=== PATIENT | female | born 1940 | race American Indian/Alaskan Native ===

== ENCOUNTER 2017-06-10 13:40 | Outpatient (CLI) | payer MEDICARE, BC ==
[2017-06-10] MEDS ORDERED: XYLOCAINE TOPICAL 4% TP ONE ×2 (14:38→14:48)
== END 2017-06-10 13:41 | disposition home or self-care (01) ==
LOC: WOUND 13:40
PROVIDERS: ATTEND Nurse Practitioner
DX: I87.313 Chronic venous hypertension (idiopathic) with ulcer of bilateral lower extremity (principal); E11.622 Type 2 diabetes mellitus with other skin ulcer; L97.821 Non-pressure chronic ulcer of other part of left lower leg limited to breakdown of skin; L97.811 Non-pressure chronic ulcer of other part of right lower leg limited to breakdown of skin; J44.9 Chronic obstructive pulmonary disease, unspecified; Z86.718 Personal history of other venous thrombosis and embolism
CPT/HCPCS: 87075; 87076; 87116; 87186

== ENCOUNTER 2017-06-17 13:04 | Outpatient (CLI) | payer MEDICARE, BC ==
[2017-06-17] MEDS ORDERED: XYLOCAINE TOPICAL 4% TP ONE (13:28)
[2017-06-17] MEDS ORDERED: NACL 0.9% IR PRN (13:29)
[2017-06-17] MEDS ORDERED: NACL 0.9% 500 ML IR ONE (13:34)
[2017-06-17] MEDS ORDERED: SILVER NITRATE TP ONE (14:18)
== END 2017-06-17 13:05 | disposition home or self-care (01) ==
LOC: WOUND 13:04
PROVIDERS: ATTEND Nurse Practitioner
DX: E11.622 Type 2 diabetes mellitus with other skin ulcer (principal); L97.821 Non-pressure chronic ulcer of other part of left lower leg limited to breakdown of skin; L97.811 Non-pressure chronic ulcer of other part of right lower leg limited to breakdown of skin; I87.313 Chronic venous hypertension (idiopathic) with ulcer of bilateral lower extremity; I80.293 Phlebitis and thrombophlebitis of other deep vessels of lower extremity, bilateral; J44.9 Chronic obstructive pulmonary disease, unspecified; Z86.718 Personal history of other venous thrombosis and embolism; Z85.528 Personal history of other malignant neoplasm of kidney

== ENCOUNTER 2017-06-24 13:02 | Outpatient (CLI) | payer MEDICARE, BC | END 2017-06-24 13:03 | disposition home or self-care (01) | LOC: WOUND 13:02 | PROVIDERS: ATTEND Nurse Practitioner | DX: I87.313 Chronic venous hypertension (idiopathic) with ulcer of bilateral lower extremity (principal); E11.622 Type 2 diabetes mellitus with other skin ulcer; L97.821 Non-pressure chronic ulcer of other part of left lower leg limited to breakdown of skin; L97.811 Non-pressure chronic ulcer of other part of right lower leg limited to breakdown of skin; J44.9 Chronic obstructive pulmonary disease, unspecified; Z85.528 Personal history of other malignant neoplasm of kidney; Z86.718 Personal history of other venous thrombosis and embolism | CPT/HCPCS: 29580; 29581 ==

== ENCOUNTER 2017-07-15 13:09 | Outpatient (CLI) | payer MEDICARE, BC ==
[2017-07-15] MEDS ORDERED: XYLOCAINE TOPICAL 4% TP ONE (14:25)
[2017-07-15] MEDS ORDERED: NACL 0.9% IR ONE (14:26)
== END 2017-07-15 13:10 | disposition home or self-care (01) ==
LOC: WOUND 13:09
PROVIDERS: ATTEND Nurse Practitioner
DX: I87.313 Chronic venous hypertension (idiopathic) with ulcer of bilateral lower extremity (principal); E11.622 Type 2 diabetes mellitus with other skin ulcer; L97.821 Non-pressure chronic ulcer of other part of left lower leg limited to breakdown of skin; L97.811 Non-pressure chronic ulcer of other part of right lower leg limited to breakdown of skin; J44.9 Chronic obstructive pulmonary disease, unspecified; I10 Essential (primary) hypertension; Z86.718 Personal history of other venous thrombosis and embolism; Z85.528 Personal history of other malignant neoplasm of kidney
CPT/HCPCS: 11719; 87075; 87076; 87116; 87186

== ENCOUNTER 2017-07-22 13:21 | Outpatient (CLI) | payer MEDICARE, BC ==
[2017-07-22] MEDS ORDERED: XYLOCAINE TOPICAL 4% TP ONE (13:45)
[2017-07-22] MEDS ORDERED: NACL 0.9% 500 ML IR ONE (13:56)
== END 2017-07-22 13:22 | disposition home or self-care (01) ==
LOC: WOUND 13:21
PROVIDERS: ATTEND Nurse Practitioner
DX: I87.313 Chronic venous hypertension (idiopathic) with ulcer of bilateral lower extremity (principal); E11.622 Type 2 diabetes mellitus with other skin ulcer; L97.821 Non-pressure chronic ulcer of other part of left lower leg limited to breakdown of skin; L97.811 Non-pressure chronic ulcer of other part of right lower leg limited to breakdown of skin; J44.9 Chronic obstructive pulmonary disease, unspecified; Z86.718 Personal history of other venous thrombosis and embolism; Z85.528 Personal history of other malignant neoplasm of kidney

== ENCOUNTER 2017-07-27 12:46 | Outpatient (CLI) | payer MEDICARE, BC ==
[2017-07-27] MEDS ORDERED: XYLOCAINE TOPICAL 4% TP ONE (13:58)
[2017-07-28] MEDS ORDERED: XYLOCAINE TOPICAL 4% TP ONE (12:26)
== END 2017-07-27 12:47 | disposition home or self-care (01) ==
LOC: WOUND 12:46
PROVIDERS: ATTEND Surgery
DX: I87.313 Chronic venous hypertension (idiopathic) with ulcer of bilateral lower extremity (principal); L97.821 Non-pressure chronic ulcer of other part of left lower leg limited to breakdown of skin; L97.811 Non-pressure chronic ulcer of other part of right lower leg limited to breakdown of skin; J44.9 Chronic obstructive pulmonary disease, unspecified; Z86.718 Personal history of other venous thrombosis and embolism; Z85.528 Personal history of other malignant neoplasm of kidney

== ENCOUNTER 2017-08-16 08:50 | Outpatient (CLI) | payer MEDICARE, BC ==
[2017-08-16] MEDS ORDERED: XYLOCAINE TOPICAL 4% TP ONE ×2 (09:40→09:43)
[2017-08-16] MEDS ORDERED: NACL 0.9% IR PRN (09:44)
== END 2017-08-16 08:51 | disposition home or self-care (01) ==
LOC: WOUND 08:50
PROVIDERS: ATTEND Internal Medicine
DX: I87.313 Chronic venous hypertension (idiopathic) with ulcer of bilateral lower extremity (principal); E11.622 Type 2 diabetes mellitus with other skin ulcer; L97.811 Non-pressure chronic ulcer of other part of right lower leg limited to breakdown of skin; L97.821 Non-pressure chronic ulcer of other part of left lower leg limited to breakdown of skin; J44.9 Chronic obstructive pulmonary disease, unspecified; Z86.718 Personal history of other venous thrombosis and embolism

== ENCOUNTER 2017-08-16 10:36 | Inpatient (IN) | payer MEDICARE ==
--- NOTE | 2017-08-16 13:12 | Event Note ---
Date: 08/16/17 Patient with a history of venous insufficiency who was sent from wound care for direct admission secondary to worsening wounds of the right lower extremity. The wounds are consistent with venous ulcerations. Patient has easily palpable pulses. In discussing the patient's care with the patient, the patient stated that her vascular surgeon is Dr. Frank with [facility] [place]. Please consult Dr. Frank for further management of these patients wounds.
--- NOTE | 2017-08-16 14:14 | Consultation ---
History of Present Illness - Reason for Consult Consult date: 08/16/17 cellulitis Requesting physician: ANGELITO ARAUJO - History of Present Illness 77 years old female with history of venous insufficiency and chronic right leg ulcer initially admitted at [facility] in November 2016 with same ulcer, sent to rehab. Patient was readmitted on 08/16/17 as direct admission secondary to worsening wounds of the right lower extremity. Patient was seen in the wound clinic. Wound cx on 06/10/17 grew MENTAL HEALTH PROFESSIONAL-Proteus, Klebsiella, E faecalis and E coli. Denies any recent fever, chills, N/V/D. Vital signs are not available. Microbiology: Blood cultures: Urine cultures: Respiratory cultures: Wound cultures: 06/10 MENTAL HEALTH PROFESSIONAL-Proteus, Klebsiella, E faecalis and E coli 07/15 MDR-Proteus, Klebsiella, Pseudomonas, E coli and GNR Current Antimicrobials: none Past History Past Medical History: other (venous insuf) Past Surgical History: Other (right leg wound debridement ) Social history: no significant social history Family history: no significant family history Medications and Allergies Allergies Allergy/AdvReac Type Severity Reaction Status Date / Time CHRISTY Inhibitors Allergy Angioedema Verified 02/19/16 14:58 ciprofloxacin [From Cipro] Allergy Angioedema Verified 02/19/16 14:58 ciprofloxacin HCl Allergy Angioedema Verified 02/19/16 14:58 [From Cipro] Home Medications Medication Instructions Recorded Confirmed Last Taken Type Azithromycin [Zithromax TAB] 500 mg PO QDAY #3 tablet 02/19/16 Unknown Rx Physical Examination - Physical Exam Narrative exam: General appearance: Alert in NAD, conversant Eyes: anicteric sclerae, moist conjunctivae; no lid-lag; PERRLA HENT: Atraumatic; oropharynx clear Neck: Trachea midline; supple, no thyromegaly or lymphadenopathy Lungs: CTA CV: RRR Abdomen: Soft, non-tender Extremities: right leg wound covered with dressings Skin: Normal temperature, turgor and texture; no rash, ulcers or subcutaneous nodules Psych: Appropriate affect, alert and oriented to person, place and time. Neuro: alert and oriented x 3. Moving all extermities Lines: No CVL / PICC Results - Labs Labs: Abnormal lab results 08/16/17 08/16/17 Range/Units 12:31 13:42 POC Glucose 56 L 107 H (70-105) Assessment and Plan Assessment: 1) Chronic venous right leg ulcer: initially admitted at [facility] in November 2016 s/p debridement. -Wound cx on 06/10/17 grew MENTAL HEALTH PROFESSIONAL-Proteus, Klebsiella, E faecalis and E coli. -Wound cx on 07/15 MDR-Proteus, Klebsiella, Pseudomonas, E coli and GNR 2) Venous insufficiency and Plan: -STRICT contact isolation due to MENTAL HEALTH PROFESSIONAL -contact infection control -start meropenem IV for now -Dr Hansen consult -leg elevation Thank you Dr Araujo for your consultation, will follow up with you. Ewelina Escobar MD Infectious Diseases Specialist [facility] [place] M [phone] O [phone]
[2017-08-16] MEDS ORDERED: MERREM 1,000 MG in NACL 0.9% 100 ML IV SCH (15:00)
[2017-08-16] MEDS: MERREM 1,000 MG in NACL 0.9% 20 ML IV SCH ×2 (16:43→21:14)
[2017-08-16] MEDS: NOVOLOG SUB-Q SCH ×2 (17:22→21:53)
[2017-08-17] MEDS: MERREM 1,000 MG in NACL 0.9% 20 ML IV SCH ×3 (06:25→22:28)
--- NOTE | 2017-08-17 06:56 | History and Physical Report ---
History of Present Illness Date of admission: 08/16/17 12:04 Chief complaint: MY leg is infected History of present illness: 77 YO Female with HTN, DM, COPD, JAMES on CPAP, MO, Metabolic syndrome admitted directly from wound clinic for treatment of RLE cellulitis. Pt seen and evaluated upon arrival. Pt denies fever, chills, CP, Palpitations, NVD, syndope , prolonged travel/immobility, individual/family history of DVT/PE, unintentional weight loss or night sweats. Pt denies any complaints at time of exam. Past History Past Medical History: COPD, diabetes, hypertension, other (venous insuf) Past Surgical History: Other (right leg wound debridement ) Social history: no significant social history Family history: no significant family history Medications and Allergies Allergies Allergy/AdvReac Type Severity Reaction Status Date / Time CHRISTY Inhibitors Allergy Angioedema Verified 02/19/16 14:58 ciprofloxacin [From Cipro] Allergy Angioedema Verified 02/19/16 14:58 ciprofloxacin HCl Allergy Angioedema Verified 02/19/16 14:58 [From Cipro] Home Medications Medication Instructions Recorded Confirmed Last Taken Type Azithromycin [Zithromax TAB] 500 mg PO QDAY #3 tablet 02/19/16 Unknown Rx ALBUTEROL NEB's 2.5 mg INHALATION DAILY 08/16/17 08/16/17 Unknown History ALPRAZolam 0.5 mg PO BID PRN 08/16/17 08/16/17 Unknown History AtorvaSTATin 40 mg PO HS 08/16/17 08/16/17 Unknown History Furosemide 20 mg PO BID 08/16/17 08/16/17 Unknown History Levothyroxine 175 mcg PO DAILY 08/16/17 08/16/17 Unknown History Metoprolol SUCCINATE ER TAB 25 mg PO DAILY 08/16/17 08/16/17 Unknown History Tylenol /Codeine # 3 tab PO Q12HR PRN 08/16/17 Unknown History Ventolin HFA 90 mcg IH Q6HR PRN 08/16/17 08/16/17 Unknown History Active Meds: Active Medications Meropenem 1,000 mg/ Sodium (Chloride) 20 mls @ 20 mls/10 min IV Q8HR LAURENCE Last Admin: 08/17/17 06:25 Dose: 20 mls/10 min Insulin Aspart (Novolog) 0 units SUB-Q ACHS LAURENCE PRN Reason: Protocol Last Admin: 08/16/17 21:53 Dose: 8 units Metoprolol Tartrate (Lopressor) 25 mg PO DAILY LAURENCE Review of Systems Constitutional: no weight loss, no weight gain, no fever, no chills Ears, nose, mouth and throat: no ear pain, no ear discharge, no tinnitis, no decreased hearing, no nose pain, no nasal congestion Breasts: no change in shape, no swelling, no mass Cardiovascular: no chest pain, no orthopnea, no palpitations, no rapid/ irregular heart beat, no edema Respiratory: no cough, no cough with sputum, no excessive sputum, no hemoptysis , no shortness of breath Gastrointestinal: no abdominal pain, no nausea, no vomiting, no diarrhea, no constipation Genitourinary Female: no pelvic pain, no flank pain, no dysuria, no urinary frequency, no urgency Rectal: no pain, no incontinence, no bleeding Musculoskeletal: no neck stiffness, no neck pain, no shooting arm pain, no arm numbness/tingling, no low back pain Integumentary: redness (RLE redness, wound infection), no rash, no pruritis Neurological: no head injury, no transient paralysis, no paralysis, no weakness , no parathesias, no numbness Psychiatric: no anxiety, no memory loss, no change in sleep habits, no insomnia Endocrine: no cold intolerance, no heat intolerance, no polyphagia, no excessive thirst, no nocturia, no excessive sweating Hematologic/Lymphatic: no easy bruising, no easy bleeding Allergic/Immunologic: no urticaria, no allergic rhinitis, no wheezing Exam - Constitutional Vitals: Temp Pulse Resp BP Pulse Ox 98.7 F 84 19 120/79 98 08/16/17 20:20 08/16/17 23:55 08/16/17 23:55 08/16/17 20:20 08/16/17 23:55 General appearance: Present: mild distress, obese - EENT Eyes: Present: PERRL ENT: hearing intact, clear oral mucosa - Neck Neck: Present: supple, normal ROM - Respiratory Respiratory effort: normal Respiratory: bilateral: CTA - Cardiovascular Heart Sounds: Present: S1 & S2. Absent: rub, click - Extremities Extremities: pulses symmetrical, No edema Extremity abnormal: edema (RLE dressing CDI) Peripheral Pulses: abnormal (diinished ble) - Abdominal General gastrointestinal: Present: soft, non-tender, non-distended, normal bowel sounds Female genitourinary: Present: normal - Integumentary Integumentary: Present: clear, warm, dry - Musculoskeletal Musculoskeletal: gait normal, strength equal bilaterally - Psychiatric Psychiatric: appropriate mood/affect, intact judgment & insight - Neurologic Neurologic: CNII-XII intact, moves all extremities Results - Labs Labs: Abnormal lab results 08/16/17 08/16/17 08/16/17 Range/Units 12:31 13:42 16:58 POC Glucose 56 L 107 H 310 H (70-105) 08/16/17 08/17/17 Range/Units 21:38 05:16 POC Glucose 350 H 208 H (70-105) Assessment and Plan - Patient Problems (1) Cellulitis of right lower extremity Current Visit: Yes Status: Acute Plan to address problem: IV abx, wound care consulted, vascular service consulted, (2) Diabetes Current Visit: Yes Status: Acute Plan to address problem: ADA diet, insulin accu check (3) JAMES (obstructive sleep apnea) Current Visit: Yes Status: Acute Plan to address problem: CPAP at night, supplemental oxygen, nebs prn, incentive spirometry, early ambulation, (4) HTN (hypertension) Current Visit: Yes Status: Acute Plan to address problem: Monitor bp q shift, continue medical management, (5) DVT prophylaxis Current Visit: Yes Status: Acute
[2017-08-17] MEDS ORDERED: ALPRAZOLAM 0.5 MG PO PRN (06:59)
[2017-08-17] MEDS ORDERED: XANAX PO PRN (07:57)
[2017-08-17] MEDS ORDERED: LASIX PO SCH (08:00)
[2017-08-17] MEDS: NOVOLOG SUB-Q SCH ×5 (08:30→22:29)
[2017-08-17] MEDS ORDERED: APRESOLINE IV PRN (09:18)
[2017-08-17] MEDS: SYNTHROID PO SCH ×2 (09:58→09:59)
[2017-08-17] MEDS: LASIX PO SCH ×2 (09:59→17:50)
[2017-08-17] MEDS: TOPROL XL PO SCH (09:59)
[2017-08-17] MEDS ORDERED: NON-FORMULARY (Metoprolol Succinate Er Tab 25 MG) PO SCH (10:00)
[2017-08-17] MEDS ORDERED: NON-FORMULARY (Furosemide 20 MG) PO SCH (10:00)
[2017-08-17] MEDS ORDERED: LOPRESSOR PO SCH (10:00)
[2017-08-17] MEDS ORDERED: [UNRECOGNIZED DRUG - OTHER] INHALATION SCH (10:00)
[2017-08-17] MEDS ORDERED: LEVOTHYROXINE 175 MCG PO SCH (10:00)
[2017-08-17 10:05] LABS: Hematocrit 41.7 % (30.3-42.9); Hemoglobin 13.1 gm/dl (10.1-14.3); Mean Corpuscular HGB Conc 32 % (30-34); Mean Corpuscular Volume 81 fl (79-97); Platelet Count 304 K/mm3 (140-440); Red Blood Count 5.13 M/mm3 (3.65-5.03); Red Cell Distribution Width 15.5 % (13.2-15.2); White Blood Count 14.5 K/mm3 (4.5-11.0)
[2017-08-17 10:10] LABS: Mean Corpuscular Hemoglobin 26 pg (28-32)
[2017-08-17 10:16] LABS: Calcium 8.6 mg/dL (8.4-10.2); Chloride 98.1 mmol/L (98-107)
[2017-08-17] MEDS: PROVENTIL IH SCH ×3 (10:25→18:35)
[2017-08-17 11:02] LABS: Blastocytes % (Manual) 0 %
[2017-08-17 11:03] LABS: Basophils % (Manual) 0 % (0.0-1.8); Diff Status Complete; Hypochromasia 1+
--- NOTE | 2017-08-17 11:24 | Progress Note ---
Assessment and Plan Assessment: 1) Chronic venous right leg ulcer: initially admitted at [facility] in November 2016 s/p debridement. -Wound cx on 06/10/17 grew BLOCK SAWYER-Proteus, Klebsiella, E faecalis and E coli. -Wound cx on 07/15 MDR-Proteus, Klebsiella, Pseudomonas, E coli and GNR 2) Venous insufficiency and Plan: -STRICT contact isolation due to BLOCK SAWYER -contact infection control -continue meropenem day 2 -Dr Hansen consult - pending -leg elevation Thank you Dr Hand for your consultation, will follow up with you. Ewelina Escobar MD Infectious Diseases Specialist [facility] M [phone] O [phone] Subjective Date of service: 08/17/17 Principal diagnosis: leg wound Interval history: Feels ok no fever, some pain at leg wound Microbiology: Blood cultures: Urine cultures: Respiratory cultures: Wound cultures: 06/10 BLOCK SAWYER-Proteus, Klebsiella, E faecalis and E coli 07/15 MDR-Proteus, Klebsiella, Pseudomonas, E coli and GNR Current Antimicrobials: meropenem 08/16 Objective - Exam Narrative Exam: General appearance: Alert in NAD, conversant Eyes: anicteric sclerae, moist conjunctivae; no lid-lag; PERRLA HENT: Atraumatic; oropharynx clear Neck: Trachea midline; supple, no thyromegaly or lymphadenopathy Lungs: CTA CV: RRR Abdomen: Soft, non-tender Extremities: right leg wound covered with dressings Skin: Normal temperature, turgor and texture; no rash, ulcers or subcutaneous nodules Psych: Appropriate affect, alert and oriented to person, place and time. Neuro: alert and oriented x 3. Moving all extermities Lines: No CVL / PICC - Constitutional Vitals: Vital Signs Temp Pulse Resp BP Pulse Ox 98.1 F 54 L 18 177/61 97 08/17/17 07:57 08/17/17 10:35 08/17/17 10:35 08/17/17 07:57 08/17/17 07:57 Temperature -Last 24 Hours Temperature 98.1 F Temperature 98.7 F Temperature 98.1 F Temperature 97.7 F Temperature 97.9 F - Labs CBC & Chem 7: 08/17/17 09:33 08/17/17 09:33 Labs: Abnormal lab results 08/16/17 08/16/17 08/16/17 Range/Units 12:31 13:42 16:58 WBC (4.5-11.0) K/mm3 RBC (3.65-5.03) M/mm3 MCH (28-32) pg RDW (13.2-15.2) % Seg Neuts % (Manual) (40.0-70.0) % Lymphocytes % (Manual) (13.4-35.0) % Lymphocytes # (Manual) (1.2-5.4) K/mm3 Monocytes # (Manual) (0.0-0.8) K/mm3 BUN (7-17) mg/dL Glucose (65-100) mg/dL POC Glucose 56 L 107 H 310 H (70-105) 08/16/17 08/17/17 08/17/17 Range/Units 21:38 05:16 09:33 WBC 14.5 H (4.5-11.0) K/mm3 RBC 5.13 H (3.65-5.03) M/mm3 MCH 26 L (28-32) pg RDW 15.5 H (13.2-15.2) % Seg Neuts % (Manual) 37.0 L (40.0-70.0) % Lymphocytes % (Manual) 54.0 H (13.4-35.0) % Lymphocytes # (Manual) 7.8 H (1.2-5.4) K/mm3 Monocytes # (Manual) 1.0 H (0.0-0.8) K/mm3 BUN (7-17) mg/dL Glucose (65-100) mg/dL POC Glucose 350 H 208 H (70-105) 08/17/17 Range/Units 09:33 WBC (4.5-11.0) K/mm3 RBC (3.65-5.03) M/mm3 MCH (28-32) pg RDW (13.2-15.2) % Seg Neuts % (Manual) (40.0-70.0) % Lymphocytes % (Manual) (13.4-35.0) % Lymphocytes # (Manual) (1.2-5.4) K/mm3 Monocytes # (Manual) (0.0-0.8) K/mm3 BUN 26 H (7-17) mg/dL Glucose 273 H (65-100) mg/dL POC Glucose (70-105)
[2017-08-17] MEDS: LYRICA PO SCH ×2 (12:07→22:28)
--- NOTE | 2017-08-17 15:25 | Progress Note ---
<HALINA MAC - Last Filed: 08/17/17 15:11> Assessment and Plan Assessment and plan: 77 YO Female with HTN, DM, COPD, JAMES on CPAP, MO, Metabolic syndrome admitted directly from wound clinic for treatment of RLE cellulitis. Pt seen and evaluated upon arrival. Pt denies fever, chills, CP, Palpitations, NVD, syndope , prolonged travel/immobility, individual/family history of DVT/PE, unintentional weight loss or night sweats. Pt denies any complaints at time of exam. Cellulitis of right lower extremity ID following - Continue meropenem, Dr Hansen consulted, Contact Isolation due to RULING MACHINE FEEDER-Proteus- wound culture dated 01/20 Diabetes Mellitus with hyperglycemia ADA diet Sliding Scale insulin, accu check Obstructive sleep apnea CPAP at night, supplemental oxygen, nebs prn, incentive spirometry, early ambulation, HTN (hypertension) Hydralazine initiated PRN, continue home meds Monitor bp q shift Hypothyroidism Continue Levothyroxine Leukocytosis Likely from cellulitis Continue IV abs DVT prophylaxis SCDs History Interval history: Patient awake and alert receiving breathing treatment. Complained of R lef pain and SOB prior to treatment. Denies CP, NV. Hospitalist Physical - Constitutional Vitals: Temp Pulse Resp BP Pulse Ox 98.1 F 54 L 18 177/61 97 08/17/17 07:57 08/17/17 10:35 08/17/17 10:35 08/17/17 07:57 08/17/17 07:57 General appearance: Present: mild distress, obese - EENT Eyes: Present: PERRL, EOM intact ENT: hearing intact, clear oral mucosa - Neck Neck: Present: supple, normal ROM - Respiratory Respiratory effort: normal Respiratory: bilateral: wheezing - Cardiovascular Rhythm: regular Heart Sounds: Present: S1 & S2 - Extremities Extremities: pulses symmetrical, No edema (shruthi) Peripheral Pulses: within normal limits - Abdominal General gastrointestinal: soft, non-tender - Integumentary Integumentary: Present: warm (RLE wound infection), dry - Psychiatric Psychiatric: appropriate mood/affect, cooperative - Neurologic Neurologic: CNII-XII intact, moves all extremities - Allied Health Allied health notes reviewed: nursing Results - Labs CBC & Chem 7: 08/17/17 09:33 08/17/17 09:33 Labs: Laboratory Last Values WBC 14.5 K/mm3 (4.5-11.0) H 08/17/17 09:33 RBC 5.13 M/mm3 (3.65-5.03) H 08/17/17 09:33 Hgb 13.1 gm/dl (10.1-14.3) 08/17/17 09:33 Hct 41.7 % (30.3-42.9) 08/17/17 09:33 MCV 81 fl (79-97) 08/17/17 09:33 MCH 26 pg (28-32) L 08/17/17 09:33 MCHC 32 % (30-34) 08/17/17 09:33 RDW 15.5 % (13.2-15.2) H 08/17/17 09:33 Plt Count 304 K/mm3 (140-440) 08/17/17 09:33 Lymph # Interactive Media Director 08/17/17 09:33 Add Manual Diff Complete 08/17/17 09:33 Total Counted 100 08/17/17 09:33 Seg Neuts % (Manual) 37.0 % (40.0-70.0) L 08/17/17 09:33 Band Neutrophils % 0 % 08/17/17 09:33 Lymphocytes % (Manual) 54.0 % (13.4-35.0) H 08/17/17 09:33 Reactive Lymphs % (Man) 0 % 08/17/17 09:33 Monocytes % (Manual) 7.0 % (0.0-7.3) 08/17/17 09:33 Eosinophils % (Manual) 2.0 % (0.0-4.3) 08/17/17 09:33 Basophils % (Manual) 0 % (0.0-1.8) 08/17/17 09:33 Metamyelocytes % 0 % 08/17/17 09:33 Myelocytes % 0 % 08/17/17 09:33 Promyelocytes % 0 % 08/17/17 09:33 Blast Cells % 0 % 08/17/17 09:33 Nucleated RBC % Not Reportable 08/17/17 09:33 Seg Neutrophils # Man 5.4 K/mm3 (1.8-7.7) 08/17/17 09:33 Band Neutrophils # 0.0 K/mm3 08/17/17 09:33 Lymphocytes # (Manual) 7.8 K/mm3 (1.2-5.4) H 08/17/17 09:33 Abs React Lymphs (Man) 0.0 K/mm3 08/17/17 09:33 Monocytes # (Manual) 1.0 K/mm3 (0.0-0.8) H 08/17/17 09:33 Eosinophils # (Manual) 0.3 K/mm3 (0.0-0.4) 08/17/17 09:33 Basophils # (Manual) 0.0 K/mm3 (0.0-0.1) 08/17/17 09:33 Metamyelocytes # 0.0 K/mm3 08/17/17 09:33 Myelocytes # 0.0 K/mm3 08/17/17 09:33 Promyelocytes # 0.0 K/mm3 08/17/17 09:33 Blast Cells # 0.0 K/mm3 08/17/17 09:33 WBC Morphology Not Reportable 08/17/17 09:33 Hypersegmented Neuts Not Reportable 08/17/17 09:33 Hyposegmented Neuts Not Reportable 08/17/17 09:33 Hypogranular Neuts Not Reportable 08/17/17 09:33 Smudge Cells Not Reportable 08/17/17 09:33 Toxic Granulation Not Reportable 08/17/17 09:33 Toxic Vacuolation Not Reportable 08/17/17 09:33 Dohle Bodies Not Reportable 08/17/17 09:33 Pelger-Huet Anomaly Not Reportable 08/17/17 09:33 Hailey Rods Not Reportable 08/17/17 09:33 Platelet Estimate Appears normal 08/17/17 09:33 Clumped Platelets Not Reportable 08/17/17 09:33 Plt Clumps, EDTA Not Reportable 08/17/17 09:33 Large Platelets Not Reportable 08/17/17 09:33 Giant Platelets Not Reportable 08/17/17 09:33 Platelet Satelliting Not Reportable 08/17/17 09:33 Plt Morphology Comment Not Reportable 08/17/17 09:33 RBC Morphology Not Reportable 08/17/17 09:33 Dimorphic RBCs Not Reportable 08/17/17 09:33 Polychromasia Not Reportable 08/17/17 09:33 Hypochromasia 1+ 08/17/17 09:33 Poikilocytosis Not Reportable 08/17/17 09:33 Anisocytosis Not Reportable 08/17/17 09:33 Microcytosis Not Reportable 08/17/17 09:33 Macrocytosis Not Reportable 08/17/17 09:33 Spherocytes Not Reportable 08/17/17 09:33 Pappenheimer Bodies Not Reportable 08/17/17 09:33 Sickle Cells Not Reportable 08/17/17 09:33 Target Cells Not Reportable 08/17/17 09:33 Tear Drop Cells Not Reportable 08/17/17 09:33 Ovalocytes Not Reportable 08/17/17 09:33 Helmet Cells Not Reportable 08/17/17 09:33 [place] Bodies Not Reportable 08/17/17 09:33 [place] Rings Not Reportable 08/17/17 09:33 Norris Cells Not Reportable 08/17/17 09:33 Bite Cells Not Reportable 08/17/17 09:33 Crenated Cell Not Reportable 08/17/17 09:33 Elliptocytes Not Reportable 08/17/17 09:33 Acanthocytes (Spur) Not Reportable 08/17/17 09:33 Rouleaux Not Reportable 08/17/17 09:33 Hemoglobin C Crystals Not Reportable 08/17/17 09:33 Schistocytes Not Reportable 08/17/17 09:33 Malaria parasites Not Reportable 08/17/17 09:33 Alonso Bodies Not Reportable 08/17/17 09:33 Hem Pathologist Commnt No 08/17/17 09:33 Sodium 139 mmol/L (137-145) 08/17/17 09:33 Potassium 4.0 mmol/L (3.6-5.0) 08/17/17 09:33 Chloride 98.1 mmol/L (98-107) 08/17/17 09:33 Carbon Dioxide 27 mmol/L (22-30) 08/17/17 09:33 Anion Gap 18 mmol/L 08/17/17 09:33 BUN 26 mg/dL (7-17) H 08/17/17 09:33 Creatinine 1.1 mg/dL (0.7-1.2) 08/17/17 09:33 Estimated GFR 58 ml/min 08/17/17 09:33 BUN/Creatinine Ratio 24 % 08/17/17 09:33 Glucose 273 mg/dL (65-100) H 08/17/17 09:33 POC Glucose 210 (70-105) H 08/17/17 12:03 Calcium 8.6 mg/dL (8.4-10.2) 08/17/17 09:33 C-Reactive Protein 0.90 mg/dL (0.00-1.30) 08/17/17 09:33 <STEVE PERAZA - Last Filed: 08/17/17 21:52> Assessment and Plan Assessment and plan: I saw and evaluated the patient. I agree with the findings and the plan of care as documented in the Physician Meat Market Manager's~note, with the following corrections and additions. Morbid Obesity Counselling on weight loss provided RLE none healing ulcer ID input noted. await surgical eval for debridement. check am labs Hospitalist Physical - Constitutional Vitals: Temp Pulse Resp BP Pulse Ox 97.7 F 60 18 145/54 97 08/17/17 15:40 08/17/17 18:35 08/17/17 18:35 08/17/17 15:40 08/17/17 19:08 General appearance: Present: no acute distress, obese - EENT Eyes: Present: PERRL, EOM intact ENT: hearing intact - Neck Neck: Present: supple, normal ROM - Respiratory Respiratory: bilateral: diminished - Cardiovascular Rhythm: regular Heart Sounds: Present: S1 & S2. Absent: systolic murmur - Extremities Extremities: pulses symmetrical, No edema Extremity abnormal: edema (1+ right >left) Peripheral Pulses: within normal limits - Integumentary Integumentary: Present: warm Results - Labs CBC & Chem 7: 08/17/17 09:33 08/17/17 09:33 Labs: Laboratory Last Values WBC 14.5 K/mm3 (4.5-11.0) H 08/17/17 09:33 RBC 5.13 M/mm3 (3.65-5.03) H 08/17/17 09:33 Hgb 13.1 gm/dl (10.1-14.3) 08/17/17 09:33 Hct 41.7 % (30.3-42.9) 08/17/17 09:33 MCV 81 fl (79-97) 08/17/17 09:33 MCH 26 pg (28-32) L 08/17/17 09:33 MCHC 32 % (30-34) 08/17/17 09:33 RDW 15.5 % (13.2-15.2) H 08/17/17 09:33 Plt Count 304 K/mm3 (140-440) 08/17/17 09:33 Lymph # Interactive Media Director 08/17/17 09:33 Add Manual Diff Complete 08/17/17 09:33 Total Counted 100 08/17/17 09:33 Seg Neuts % (Manual) 37.0 % (40.0-70.0) L 08/17/17 09:33 Band Neutrophils % 0 % 08/17/17 09:33 Lymphocytes % (Manual) 54.0 % (13.4-35.0) H 08/17/17 09:33 Reactive Lymphs % (Man) 0 % 08/17/17 09:33 Monocytes % (Manual) 7.0 % (0.0-7.3) 08/17/17 09:33 Eosinophils % (Manual) 2.0 % (0.0-4.3) 08/17/17 09:33 Basophils % (Manual) 0 % (0.0-1.8) 08/17/17 09:33 Metamyelocytes % 0 % 08/17/17 09:33 Myelocytes % 0 % 08/17/17 09:33 Promyelocytes % 0 % 08/17/17 09:33 Blast Cells % 0 % 08/17/17 09:33 Nucleated RBC % Not Reportable 08/17/17 09:33 Seg Neutrophils # Man 5.4 K/mm3 (1.8-7.7) 08/17/17 09:33 Band Neutrophils # 0.0 K/mm3 08/17/17 09:33 Lymphocytes # (Manual) 7.8 K/mm3 (1.2-5.4) H 08/17/17 09:33 Abs React Lymphs (Man) 0.0 K/mm3 08/17/17 09:33 Monocytes # (Manual) 1.0 K/mm3 (0.0-0.8) H 08/17/17 09:33 Eosinophils # (Manual) 0.3 K/mm3 (0.0-0.4) 08/17/17 09:33 Basophils # (Manual) 0.0 K/mm3 (0.0-0.1) 08/17/17 09:33 Metamyelocytes # 0.0 K/mm3 08/17/17 09:33 Myelocytes # 0.0 K/mm3 08/17/17 09:33 Promyelocytes # 0.0 K/mm3 08/17/17 09:33 Blast Cells # 0.0 K/mm3 08/17/17 09:33 WBC Morphology Not Reportable 08/17/17 09:33 Hypersegmented Neuts Not Reportable 08/17/17 09:33 Hyposegmented Neuts Not Reportable 08/17/17 09:33 Hypogranular Neuts Not Reportable 08/17/17 09:33 Smudge Cells Not Reportable 08/17/17 09:33 Toxic Granulation Not Reportable 08/17/17 09:33 Toxic Vacuolation Not Reportable 08/17/17 09:33 Dohle Bodies Not Reportable 08/17/17 09:33 Pelger-Huet Anomaly Not Reportable 08/17/17 09:33 Hailey Rods Not Reportable 08/17/17 09:33 Platelet Estimate Appears normal 08/17/17 09:33 Clumped Platelets Not Reportable 08/17/17 09:33 Plt Clumps, EDTA Not Reportable 08/17/17 09:33 Large Platelets Not Reportable 08/17/17 09:33 Giant Platelets Not Reportable 08/17/17 09:33 Platelet Satelliting Not Reportable 08/17/17 09:33 Plt Morphology Comment Not Reportable 08/17/17 09:33 RBC Morphology Not Reportable 08/17/17 09:33 Dimorphic RBCs Not Reportable 08/17/17 09:33 Polychromasia Not Reportable 08/17/17 09:33 Hypochromasia 1+ 08/17/17 09:33 Poikilocytosis Not Reportable 08/17/17 09:33 Anisocytosis Not Reportable 08/17/17 09:33 Microcytosis Not Reportable 08/17/17 09:33 Macrocytosis Not Reportable 08/17/17 09:33 Spherocytes Not Reportable 08/17/17 09:33 Pappenheimer Bodies Not Reportable 08/17/17 09:33 Sickle Cells Not Reportable 08/17/17 09:33 Target Cells Not Reportable 08/17/17 09:33 Tear Drop Cells Not Reportable 08/17/17 09:33 Ovalocytes Not Reportable 08/17/17 09:33 Helmet Cells Not Reportable 08/17/17 09:33 [place] Bodies Not Reportable 08/17/17 09:33 [place] Rings Not Reportable 08/17/17 09:33 Norris Cells Not Reportable 08/17/17 09:33 Bite Cells Not Reportable 08/17/17 09:33 Crenated Cell Not Reportable 08/17/17 09:33 Elliptocytes Not Reportable 08/17/17 09:33 Acanthocytes (Spur) Not Reportable 08/17/17 09:33 Rouleaux Not Reportable 08/17/17 09:33 Hemoglobin C Crystals Not Reportable 08/17/17 09:33 Schistocytes Not Reportable 08/17/17 09:33 Malaria parasites Not Reportable 08/17/17 09:33 Alonso Bodies Not Reportable 08/17/17 09:33 Hem Pathologist Commnt No 08/17/17 09:33 Sodium 139 mmol/L (137-145) 08/17/17 09:33 Potassium 4.0 mmol/L (3.6-5.0) 08/17/17 09:33 Chloride 98.1 mmol/L (98-107) 08/17/17 09:33 Carbon Dioxide 27 mmol/L (22-30) 08/17/17 09:33 Anion Gap 18 mmol/L 08/17/17 09:33 BUN 26 mg/dL (7-17) H 08/17/17 09:33 Creatinine 1.1 mg/dL (0.7-1.2) 08/17/17 09:33 Estimated GFR 58 ml/min 08/17/17 09:33 BUN/Creatinine Ratio 24 % 08/17/17 09:33 Glucose 273 mg/dL (65-100) H 08/17/17 09:33 POC Glucose 110 (70-105) H 08/17/17 21:02 Calcium 8.6 mg/dL (8.4-10.2) 08/17/17 09:33 C-Reactive Protein 0.90 mg/dL (0.00-1.30) 08/17/17 09:33 - Imaging and Cardiology Imaging and Cardiology: lower ext doppler- no DVT
--- NOTE | 2017-08-17 16:15 | History and Physical Report ---
LOCATION: In room 371. CHIEF COMPLAINT: Leg ulcer. HISTORY OF PRESENT ILLNESS: Basically, the patient was seen by me at the wound care center for venous ulcer, and upon initial evaluation, I noted that the wound appeared to be discolored, purulent drainage, bad odor, and per the patient, great deal of increased pain and discomfort. I reviewed the cultures which showed multiple organisms multiple drug resistant infection organisms and because I did not know the patient, did not have her vascular situation in hand because she normally goes to [place]. I opted to admit her to the hospital to the hospitalist and consult vascular, infectious disease, and myself as well as the hospitalist. REVIEW OF SYSTEMS: No chest pain, no shortness of breath, no GI or complaints. PAST MEDICAL HISTORY: COPD, diabetes, hypertension, venous insufficiency, venous leg ulcers, and obstructive sleep apnea. PAST SURGICAL HISTORY: Leg debridement. SOCIAL HISTORY: Negative. FAMILY HISTORY: Noncontributory. ALLERGIES: CHRISTY INHIBITORS, CIPRO. MEDICATIONS: At this time include Accu-Cheks, sliding scale insulin, meropenem, Percocet, insulin, levothyroxine, Xanax, Lasix, albuterol, hydralazine, metoprolol, Lyrica, Lipitor. PHYSICAL EXAMINATION: VITAL SIGNS: Stable. Temperature 98.1, pulse 53, respirations 20, blood pressure 177/63. HEENT: Head normocephalic, atraumatic. NECK: No lymphadenopathy or JVD or bruits. CARDIOVASCULAR: S1, S2, without any murmurs, gallops, heaves, thrills, or thrusts. LUNGS: Good air entry. No rales, rhonchi or wheezes. ABDOMEN: Rotund, nontender, nondistended. Bowel sounds positive. EXTREMITIES: Bilateral edema. She has a venous leg ulcer that has exudate, slough, products of chronic inflammation, although her strength and sensation is intact. The wound is mildly exophytic, purulent drainage, and odor. NEUROLOGIC: Cranial nerves are intact. PSYCHIATRIC: Appropriate mood. PERTINENT LABORATORY DATA: Hemoglobin and hematocrit 13 and 41, white count 14.5, platelets 304. BMP: Sodium and potassium 139 and 4.0, BUN and creatinine 26 and 1.1, calcium 8.6. Glucoses have been ranged between 208 and 310. ASSESSMENT AND PLAN: 1. Chronic obstructive pulmonary disease/obstructive sleep apnea, appears to be stable. Continue inhalers. 2. Hypertension, is poorly controlled, will need adjustment of medications. 3. Diabetes. Accu-Cheks, sliding scale insulin. Resume home insulin regimen. 4. Leg ulcer consistent with venous stasis, venous insufficiency superinfected with pretty severe organisms. ID is already involved, managing antibiotics and treating. We will order arterial and venous Dopplers and ask vascular surgery, [facility] to get involved. We will need to evaluate if the patient has arterial disease and any clots. If negative on both elements, consider debridement after several days, but we can actually start compression at earlier time per Vascular Surgery. We would prefer the vascular surgery debride the wound. JOB# [id number] ANASTASIAF/NICOLAS
[2017-08-17] MEDS ORDERED: NOVOLOG SUB-Q SCH (16:30)
[2017-08-17] MEDS ORDERED: NON-FORMULARY (Pregabalin [Lyrica] 150 MG) PO SCH (22:00)
[2017-08-17] MEDS ORDERED: NON-FORMULARY (Atorvastatin 40 MG) PO SCH (22:00)
[2017-08-17] MEDS ORDERED: LEVEMIR SUB-Q SCH (22:00)
[2017-08-17] MEDS: LEVEMIR SUB-Q SCH (22:28)
[2017-08-18 05:43] LABS: Hemoglobin 11.8 gm/dl (10.1-14.3); White Blood Count 13.2 K/mm3 (4.5-11.0)
[2017-08-18] MEDS: LASIX PO SCH ×2 (05:48→18:57)
[2017-08-18] MEDS: SYNTHROID PO SCH ×2 (05:48→05:49)
[2017-08-18] MEDS: MERREM 1,000 MG in NACL 0.9% 20 ML IV SCH ×3 (05:49→21:46)
[2017-08-18 05:56] LABS: Hematocrit 36.8 % (30.3-42.9); Mean Corpuscular HGB Conc 32 % (30-34); Mean Corpuscular Hemoglobin 26 pg (28-32); Mean Corpuscular Volume 81 fl (79-97); Platelet Count 295 K/mm3 (140-440); Red Blood Count 4.57 M/mm3 (3.65-5.03); Red Cell Distribution Width 15.1 % (13.2-15.2)
[2017-08-18 06:05] LABS: Albumin 2.8 g/dL (3.9-5); Albumin/Globulin Ratio 0.7 %; Bilirubin,Total 0.5 mg/dL (0.1-1.2); Calcium 8.5 mg/dL (8.4-10.2); Chloride 101.6 mmol/L (98-107); Potassium 4.2 mmol/L (3.6-5.0); Total Protein 6.8 g/dL (6.3-8.2)
[2017-08-18] MEDS: PROVENTIL IH SCH ×3 (06:17→21:16)
[2017-08-18] MEDS: NOVOLOG SUB-Q SCH ×7 (08:45→22:56)
--- NOTE | 2017-08-18 09:16 | Progress Note ---
<STEVE PERAZA E - Last Filed: 08/19/17 07:12> Assessment and Plan Assessment and plan: I saw and evaluated the patient. I agree with the findings and the plan of care as documented in the Nurse Practitioner's~note, with the following corrections and additions. Hospitalist Physical - Constitutional Vitals: Temp Pulse Resp BP Pulse Ox 98.2 F 64 20 146/40 95 08/18/17 22:40 08/18/17 22:40 08/19/17 07:00 08/18/17 22:40 08/18/17 22:40 Results - Labs CBC & Chem 7: 08/18/17 05:15 08/18/17 05:15 Labs: Laboratory Last Values WBC 13.2 K/mm3 (4.5-11.0) H 08/18/17 05:15 RBC 4.57 M/mm3 (3.65-5.03) 08/18/17 05:15 Hgb 11.8 gm/dl (10.1-14.3) 08/18/17 05:15 Hct 36.8 % (30.3-42.9) 08/18/17 05:15 MCV 81 fl (79-97) 08/18/17 05:15 MCH 26 pg (28-32) L 08/18/17 05:15 MCHC 32 % (30-34) 08/18/17 05:15 RDW 15.1 % (13.2-15.2) 08/18/17 05:15 Plt Count 295 K/mm3 (140-440) 08/18/17 05:15 Lymph # Non Destructive Testing Inspector 08/17/17 09:33 Add Manual Diff Complete 08/17/17 09:33 Total Counted 100 08/17/17 09:33 Seg Neuts % (Manual) 37.0 % (40.0-70.0) L 08/17/17 09:33 Band Neutrophils % 0 % 08/17/17 09:33 Lymphocytes % (Manual) 54.0 % (13.4-35.0) H 08/17/17 09:33 Reactive Lymphs % (Man) 0 % 08/17/17 09:33 Monocytes % (Manual) 7.0 % (0.0-7.3) 08/17/17 09:33 Eosinophils % (Manual) 2.0 % (0.0-4.3) 08/17/17 09:33 Basophils % (Manual) 0 % (0.0-1.8) 08/17/17 09:33 Metamyelocytes % 0 % 08/17/17 09:33 Myelocytes % 0 % 08/17/17 09:33 Promyelocytes % 0 % 08/17/17 09:33 Blast Cells % 0 % 08/17/17 09:33 Nucleated RBC % Not Reportable 08/17/17 09:33 Seg Neutrophils # Man 5.4 K/mm3 (1.8-7.7) 08/17/17 09:33 Band Neutrophils # 0.0 K/mm3 08/17/17 09:33 Lymphocytes # (Manual) 7.8 K/mm3 (1.2-5.4) H 08/17/17 09:33 Abs React Lymphs (Man) 0.0 K/mm3 08/17/17 09:33 Monocytes # (Manual) 1.0 K/mm3 (0.0-0.8) H 08/17/17 09:33 Eosinophils # (Manual) 0.3 K/mm3 (0.0-0.4) 08/17/17 09:33 Basophils # (Manual) 0.0 K/mm3 (0.0-0.1) 08/17/17 09:33 Metamyelocytes # 0.0 K/mm3 08/17/17 09:33 Myelocytes # 0.0 K/mm3 08/17/17 09:33 Promyelocytes # 0.0 K/mm3 08/17/17 09:33 Blast Cells # 0.0 K/mm3 08/17/17 09:33 WBC Morphology Not Reportable 08/17/17 09:33 Hypersegmented Neuts Not Reportable 08/17/17 09:33 Hyposegmented Neuts Not Reportable 08/17/17 09:33 Hypogranular Neuts Not Reportable 08/17/17 09:33 Smudge Cells Not Reportable 08/17/17 09:33 Toxic Granulation Not Reportable 08/17/17 09:33 Toxic Vacuolation Not Reportable 08/17/17 09:33 Dohle Bodies Not Reportable 08/17/17 09:33 Pelger-Huet Anomaly Not Reportable 08/17/17 09:33 Hailey Rods Not Reportable 08/17/17 09:33 Platelet Estimate Appears normal 08/17/17 09:33 Clumped Platelets Not Reportable 08/17/17 09:33 Plt Clumps, EDTA Not Reportable 08/17/17 09:33 Large Platelets Not Reportable 08/17/17 09:33 Giant Platelets Not Reportable 08/17/17 09:33 Platelet Satelliting Not Reportable 08/17/17 09:33 Plt Morphology Comment Not Reportable 08/17/17 09:33 RBC Morphology Not Reportable 08/17/17 09:33 Dimorphic RBCs Not Reportable 08/17/17 09:33 Polychromasia Not Reportable 08/17/17 09:33 Hypochromasia 1+ 08/17/17 09:33 Poikilocytosis Not Reportable 08/17/17 09:33 Anisocytosis Not Reportable 08/17/17 09:33 Microcytosis Not Reportable 08/17/17 09:33 Macrocytosis Not Reportable 08/17/17 09:33 Spherocytes Not Reportable 08/17/17 09:33 Pappenheimer Bodies Not Reportable 08/17/17 09:33 Sickle Cells Not Reportable 08/17/17 09:33 Target Cells Not Reportable 08/17/17 09:33 Tear Drop Cells Not Reportable 08/17/17 09:33 Ovalocytes Not Reportable 08/17/17 09:33 Helmet Cells Not Reportable 08/17/17 09:33 [place] Bodies Not Reportable 08/17/17 09:33 [place] Rings Not Reportable 08/17/17 09:33 [place] Cells Not Reportable 08/17/17 09:33 Bite Cells Not Reportable 08/17/17 09:33 Crenated Cell Not Reportable 08/17/17 09:33 Elliptocytes Not Reportable 08/17/17 09:33 Acanthocytes (Spur) Not Reportable 08/17/17 09:33 Rouleaux Not Reportable 08/17/17 09:33 Hemoglobin C Crystals Not Reportable 08/17/17 09:33 Schistocytes Not Reportable 08/17/17 09:33 Malaria parasites Not Reportable 08/17/17 09:33 Alonso Bodies Not Reportable 08/17/17 09:33 Hem Pathologist Commnt No 08/17/17 09:33 Sodium 140 mmol/L (137-145) 08/18/17 05:15 Potassium 4.2 mmol/L (3.6-5.0) 08/18/17 05:15 Chloride 101.6 mmol/L (98-107) 08/18/17 05:15 Carbon Dioxide 28 mmol/L (22-30) 08/18/17 05:15 Anion Gap 15 mmol/L 08/18/17 05:15 BUN 24 mg/dL (7-17) H 08/18/17 05:15 Creatinine 1.1 mg/dL (0.7-1.2) 08/18/17 05:15 Estimated GFR 58 ml/min 08/18/17 05:15 BUN/Creatinine Ratio 22 % 08/18/17 05:15 Glucose 193 mg/dL (65-100) H 08/18/17 05:15 POC Glucose 202 (70-105) H 08/19/17 06:17 Calcium 8.5 mg/dL (8.4-10.2) 08/18/17 05:15 Total Bilirubin 0.50 mg/dL (0.1-1.2) 08/18/17 05:15 AST 10 units/L (5-40) 08/18/17 05:15 ALT 10 units/L (7-56) 08/18/17 05:15 Alkaline Phosphatase 83 units/L (35-129) 08/18/17 05:15 C-Reactive Protein 0.90 mg/dL (0.00-1.30) 08/17/17 09:33 Total Protein 6.8 g/dL (6.3-8.2) 08/18/17 05:15 Albumin 2.8 g/dL (3.9-5) L 08/18/17 05:15 Albumin/Globulin Ratio 0.7 % 08/18/17 05:15 <HALINA MAC - Last Filed: 08/19/17 08:52> Assessment and Plan Assessment and plan: 77 YO Female with HTN, DM, COPD, JAMES on CPAP, MO, Metabolic syndrome admitted directly from wound clinic for treatment of RLE cellulitis. Pt seen and evaluated upon arrival. Pt denies fever, chills, CP, Palpitations, NVD, syndope , prolonged travel/immobility, individual/family history of DVT/PE, unintentional weight loss or night sweats. Pt denies any complaints at time of exam. Cellulitis of right lower extremity ID following - Continue meropenem, Dr Hansen consulted, Contact Isolation due to TRIAL JUSTICE-Proteus- wound culture dated 01/20 Patient to be discharged with PICC for continued meropenem for two weeks Diabetes Mellitus with hyperglycemia ADA diet Sliding Scale insulin, accu check Obstructive sleep apnea CPAP at night, supplemental oxygen, nebs prn, incentive spirometry, early ambulation, HTN (hypertension) Hydralazine initiated PRN, continue home meds Monitor bp q shift Hypothyroidism Continue Levothyroxine Leukocytosis Likely from cellulitis Continue IV abs Morbid obesity Patient counselled on weight loss COPD Initiate Brovana and Pulmicort scheduled Albuterol PRN Mild to moderate malnutrition Order nutrition consult DVT prophylaxis SCDs History Interval history: Patient awake and alert receiving breathing treatment. Complained of R leg pain. Denies SOB, CP, NV. Hospitalist Physical - Constitutional Vitals: Temp Pulse Resp BP Pulse Ox 97.8 F 61 18 152/52 93 08/18/17 07:57 08/18/17 07:57 08/18/17 07:57 08/18/17 07:57 08/18/17 07:57 General appearance: Present: no acute distress, obese - EENT Eyes: Present: PERRL, EOM intact ENT: hearing intact, clear oral mucosa, dentition normal - Neck Neck: Present: supple, normal ROM - Respiratory Respiratory effort: normal Respiratory: bilateral: wheezing - Cardiovascular Rhythm: regular Heart Sounds: Present: S1 & S2 - Extremities Extremities: no ischemia Extremity abnormal: edema, other Peripheral Pulses: within normal limits - Abdominal General gastrointestinal: soft, non-tender - Integumentary Integumentary: Present: warm (RLE non healing ulcer) - Psychiatric Psychiatric: appropriate mood/affect, intact judgment & insight, cooperative - Neurologic Neurologic: CNII-XII intact, moves all extremities - Allied Health Allied health notes reviewed: nursing Results - Labs CBC & Chem 7: 08/18/17 05:15 08/18/17 05:15 Labs: Laboratory Last Values WBC 13.2 K/mm3 (4.5-11.0) H 08/18/17 05:15 RBC 4.57 M/mm3 (3.65-5.03) 08/18/17 05:15 Hgb 11.8 gm/dl (10.1-14.3) 08/18/17 05:15 Hct 36.8 % (30.3-42.9) 08/18/17 05:15 MCV 81 fl (79-97) 08/18/17 05:15 MCH 26 pg (28-32) L 08/18/17 05:15 MCHC 32 % (30-34) 08/18/17 05:15 RDW 15.1 % (13.2-15.2) 08/18/17 05:15 Plt Count 295 K/mm3 (140-440) 08/18/17 05:15 Lymph # Non Destructive Testing Inspector 08/17/17 09:33 Add Manual Diff Complete 08/17/17 09:33 Total Counted 100 08/17/17 09:33 Seg Neuts % (Manual) 37.0 % (40.0-70.0) L 08/17/17 09:33 Band Neutrophils % 0 % 08/17/17 09:33 Lymphocytes % (Manual) 54.0 % (13.4-35.0) H 08/17/17 09:33 Reactive Lymphs % (Man) 0 % 08/17/17 09:33 Monocytes % (Manual) 7.0 % (0.0-7.3) 08/17/17 09:33 Eosinophils % (Manual) 2.0 % (0.0-4.3) 08/17/17 09:33 Basophils % (Manual) 0 % (0.0-1.8) 08/17/17 09:33 Metamyelocytes % 0 % 08/17/17 09:33 Myelocytes % 0 % 08/17/17 09:33 Promyelocytes % 0 % 08/17/17 09:33 Blast Cells % 0 % 08/17/17 09:33 Nucleated RBC % Not Reportable 08/17/17 09:33 Seg Neutrophils # Man 5.4 K/mm3 (1.8-7.7) 08/17/17 09:33 Band Neutrophils # 0.0 K/mm3 08/17/17 09:33 Lymphocytes # (Manual) 7.8 K/mm3 (1.2-5.4) H 08/17/17 09:33 Abs React Lymphs (Man) 0.0 K/mm3 08/17/17 09:33 Monocytes # (Manual) 1.0 K/mm3 (0.0-0.8) H 08/17/17 09:33 Eosinophils # (Manual) 0.3 K/mm3 (0.0-0.4) 08/17/17 09:33 Basophils # (Manual) 0.0 K/mm3 (0.0-0.1) 08/17/17 09:33 Metamyelocytes # 0.0 K/mm3 08/17/17 09:33 Myelocytes # 0.0 K/mm3 08/17/17 09:33 Promyelocytes # 0.0 K/mm3 08/17/17 09:33 Blast Cells # 0.0 K/mm3 08/17/17 09:33 WBC Morphology Not Reportable 08/17/17 09:33 Hypersegmented Neuts Not Reportable 08/17/17 09:33 Hyposegmented Neuts Not Reportable 08/17/17 09:33 Hypogranular Neuts Not Reportable 08/17/17 09:33 Smudge Cells Not Reportable 08/17/17 09:33 Toxic Granulation Not Reportable 08/17/17 09:33 Toxic Vacuolation Not Reportable 08/17/17 09:33 Dohle Bodies Not Reportable 08/17/17 09:33 Pelger-Huet Anomaly Not Reportable 08/17/17 09:33 Hailey Rods Not Reportable 08/17/17 09:33 Platelet Estimate Appears normal 08/17/17 09:33 Clumped Platelets Not Reportable 08/17/17 09:33 Plt Clumps, EDTA Not Reportable 08/17/17 09:33 Large Platelets Not Reportable 08/17/17 09:33 Giant Platelets Not Reportable 08/17/17 09:33 Platelet Satelliting Not Reportable 08/17/17 09:33 Plt Morphology Comment Not Reportable 08/17/17 09:33 RBC Morphology Not Reportable 08/17/17 09:33 Dimorphic RBCs Not Reportable 08/17/17 09:33 Polychromasia Not Reportable 08/17/17 09:33 Hypochromasia 1+ 08/17/17 09:33 Poikilocytosis Not Reportable 08/17/17 09:33 Anisocytosis Not Reportable 08/17/17 09:33 Microcytosis Not Reportable 08/17/17 09:33 Macrocytosis Not Reportable 08/17/17 09:33 Spherocytes Not Reportable 08/17/17 09:33 Pappenheimer Bodies Not Reportable 08/17/17 09:33 Sickle Cells Not Reportable 08/17/17 09:33 Target Cells Not Reportable 08/17/17 09:33 Tear Drop Cells Not Reportable 08/17/17 09:33 Ovalocytes Not Reportable 08/17/17 09:33 Helmet Cells Not Reportable 08/17/17 09:33 [place] Bodies Not Reportable 08/17/17 09:33 [place] Rings Not Reportable 08/17/17 09:33 [place] Cells Not Reportable 08/17/17 09:33 Bite Cells Not Reportable 08/17/17 09:33 Crenated Cell Not Reportable 08/17/17 09:33 Elliptocytes Not Reportable 08/17/17 09:33 Acanthocytes (Spur) Not Reportable 08/17/17 09:33 Rouleaux Not Reportable 08/17/17 09:33 Hemoglobin C Crystals Not Reportable 08/17/17 09:33 Schistocytes Not Reportable 08/17/17 09:33 Malaria parasites Not Reportable 08/17/17 09:33 Alonso Bodies Not Reportable 08/17/17 09:33 Hem Pathologist Commnt No 08/17/17 09:33 Sodium 140 mmol/L (137-145) 08/18/17 05:15 Potassium 4.2 mmol/L (3.6-5.0) 08/18/17 05:15 Chloride 101.6 mmol/L (98-107) 08/18/17 05:15 Carbon Dioxide 28 mmol/L (22-30) 08/18/17 05:15 Anion Gap 15 mmol/L 08/18/17 05:15 BUN 24 mg/dL (7-17) H 08/18/17 05:15 Creatinine 1.1 mg/dL (0.7-1.2) 08/18/17 05:15 Estimated GFR 58 ml/min 08/18/17 05:15 BUN/Creatinine Ratio 22 % 08/18/17 05:15 Glucose 193 mg/dL (65-100) H 08/18/17 05:15 POC Glucose 208 (70-105) H 08/18/17 06:36 Calcium 8.5 mg/dL (8.4-10.2) 08/18/17 05:15 Total Bilirubin 0.50 mg/dL (0.1-1.2) 08/18/17 05:15 AST 10 units/L (5-40) 08/18/17 05:15 ALT 10 units/L (7-56) 08/18/17 05:15 Alkaline Phosphatase 83 units/L (35-129) 08/18/17 05:15 C-Reactive Protein 0.90 mg/dL (0.00-1.30) 08/17/17 09:33 Total Protein 6.8 g/dL (6.3-8.2) 08/18/17 05:15 Albumin 2.8 g/dL (3.9-5) L 08/18/17 05:15 Albumin/Globulin Ratio 0.7 % 08/18/17 05:15
[2017-08-18] MEDS: XANAX PO PRN (09:55)
[2017-08-18] MEDS: LYRICA PO SCH ×2 (09:55→21:45)
[2017-08-18] MEDS: TOPROL XL PO SCH (09:55)
--- NOTE | 2017-08-18 11:50 | Progress Note ---
Assessment and Plan Assessment: 1) Chronic venous right leg ulcer: initially admitted at [facility] in November 2016 s/p debridement. -Wound cx on 06/10/17 grew EMBEDDED ENGINEER-Proteus, Klebsiella, E faecalis and E coli. -Wound cx on 07/15 MDR-Proteus, Klebsiella, Pseudomonas, E coli and GNR 2) Venous insufficiency Plan: -STRICT contact isolation due to EMBEDDED ENGINEER -continue meropenem day 3 -upon discharge will do meropenem 1 g IV q 8h total 2 weeks from 08/16 until -PICC line -continue wound care Thank you Dr Hand for your consultation, will follow up with you. Ewelina Escobar MD Infectious Diseases Specialist [facility] ([facility] M [phone] O [phone] Subjective Date of service: 08/18/17 Principal diagnosis: leg wound Interval history: Feels ok no fever, some pain at leg wound Microbiology: Blood cultures: Urine cultures: Respiratory cultures: Wound cultures: 06/10 EMBEDDED ENGINEER-Proteus, Klebsiella, E faecalis and E coli 07/15 MDR-Proteus, Klebsiella, Pseudomonas, E coli and GNR Current Antimicrobials: meropenem 08/16 Objective - Exam Narrative Exam: General appearance: Alert in NAD, conversant Eyes: anicteric sclerae, moist conjunctivae; no lid-lag; PERRLA HENT: Atraumatic; oropharynx clear Neck: Trachea midline; supple, no thyromegaly or lymphadenopathy Lungs: CTA CV: RRR Abdomen: Soft, non-tender Extremities: right leg wound covered with dressings Skin: Normal temperature, turgor and texture; no rash, ulcers or subcutaneous nodules Psych: Appropriate affect, alert and oriented to person, place and time. Neuro: alert and oriented x 3. Moving all extermities Lines: No CVL / PICC - Constitutional Vitals: Vital Signs Temp Pulse Resp BP Pulse Ox 97.8 F 61 18 152/52 93 08/18/17 07:57 08/18/17 07:57 08/18/17 07:57 08/18/17 07:57 08/18/17 07:57 Temperature -Last 24 Hours Temperature 97.8 F Temperature 98.0 F Temperature 97.7 F - Labs CBC & Chem 7: 08/18/17 05:15 08/18/17 05:15 Labs: Abnormal lab results 08/17/17 08/17/17 08/18/17 Range/Units 12:03 21:02 05:15 WBC 13.2 H (4.5-11.0) K/mm3 MCH 26 L (28-32) pg BUN (7-17) mg/dL Glucose (65-100) mg/dL POC Glucose 210 H 110 H (70-105) Albumin (3.9-5) g/dL 08/18/17 08/18/17 08/18/17 Range/Units 05:15 06:36 11:28 WBC (4.5-11.0) K/mm3 MCH (28-32) pg BUN 24 H (7-17) mg/dL Glucose 193 H (65-100) mg/dL POC Glucose 208 H 228 H (70-105) Albumin 2.8 L (3.9-5) g/dL
--- NOTE | 2017-08-18 15:50 | Consultation ---
History of Present Illness - Reason for Consult Consult date: 08/18/17 - History of Present Illness This pt is a 77-year-old -La[place] female that was admitted on 2016 due to right lower extremity cellulitis. She has a history of venous stasis ulcerations, and is being followed by the outpatient wound care clinic at [facility]. 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 ,Wound cx on 07/15 MDR-Proteus, Klebsiella, Pseudomonas, E coli and GNR). An infectious disease consult was placed, and the patient is currently receiving antibiotics. A vascular surgery consult has been requested to further evaluate. She has previously been evaluated by Dr. Frank with [place] [facility]. She reportedly had a venous duplex that confirmed reflux, and they had discussed venous ablation to her left lower extremity. She states that she developed wounds to both legs in November of this year. The wounds on the left have since healed. She elevates her legs frequently (by report), but she has not used compression hose routinely. 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 denies: smoking (she has a reported 65-vimd-dxvi history but no longer smokes and quit in the ), alcohol abuse Family history: no significant family history Medications and Allergies Allergies Allergy/AdvReac Type Severity Reaction Status Date / Time CHRISTY Inhibitors Allergy Angioedema Verified 02/19/16 14:58 ciprofloxacin [From Cipro] Allergy Angioedema Verified 02/19/16 14:58 ciprofloxacin HCl Allergy Angioedema Verified 02/19/16 14:58 [From Cipro] Home Medications Medication Instructions Recorded Confirmed Last Taken Type Azithromycin [Zithromax TAB] 500 mg PO QDAY #3 tablet 02/19/16 08/17/17 Unknown Rx ALBUTEROL NEB's 2.5 mg INHALATION DAILY 08/16/17 08/16/17 Unknown History ALPRAZolam 0.5 mg PO BID PRN 08/16/17 08/16/17 Unknown History AtorvaSTATin 40 mg PO HS 08/16/17 08/16/17 Unknown History Furosemide 20 mg PO BID 08/16/17 08/16/17 Unknown History Levothyroxine 175 mcg PO DAILY 08/16/17 08/16/17 Unknown History Metoprolol SUCCINATE ER TAB 25 mg PO DAILY 08/16/17 08/16/17 Unknown History Tylenol /Codeine # 3 tab 1 tab PO Q12HR PRN 08/16/17 08/17/17 Unknown History Ventolin HFA 90 mcg IH Q6HR PRN 08/16/17 08/16/17 Unknown History Insulin Aspart [NovoLOG Flexpen] 18 units SQ AC 08/17/17 08/17/17 Unknown History Lantus 28 units SQ QHS 08/17/17 08/17/17 Unknown History Pregabalin [Lyrica] 150 mg PO BID 08/17/17 08/17/17 08/16/17 08:00 History Active Meds: Active Medications Albuterol (Proventil) 2.5 mg IH Q12HRT [facility] Last Admin: 08/18/17 07:59 Dose: Not Given Alprazolam (Xanax) 0.5 mg PO BID PRN PRN Reason: Anxiety Last Admin: 08/18/17 09:55 Dose: 0.5 mg Arformoterol Tartrate (Brovana Nebu) 15 mcg IH Q12HRT [facility] Atorvastatin Calcium (Lipitor) 40 mg PO QHS [facility] Last Admin: 08/17/17 22:27 Dose: 40 mg Budesonide (Pulmicort) 0.5 mg IH Q12HRT [facility] Furosemide (Lasix) 20 mg PO Q12HR@0600,1800 [facility] Last Admin: 08/18/17 05:48 Dose: 20 mg Hydralazine HCl (Apresoline) 10 mg IV Q4HR PRN PRN Reason: Hypertension Meropenem 1,000 mg/ Sodium (Chloride) 20 mls @ 20 mls/10 min IV Q8HR [facility] Last Admin: 08/18/17 15:00 Dose: 20 mls/10 min Insulin Aspart (Novolog) 0 units SUB-Q ACHS [facility] PRN Reason: Protocol Last Admin: 08/18/17 12:15 Dose: 3 units Insulin Aspart (Novolog) 18 units SUB-Q AC [facility] Last Admin: 08/18/17 12:15 Dose: 18 units Insulin Detemir (Levemir) 28 units SUB-Q QHS [facility] Last Admin: 08/17/17 22:28 Dose: Not Given Levothyroxine Sodium (Synthroid) 100 mcg PO DAILY@0600 [facility] Last Admin: 08/18/17 05:49 Dose: 100 mcg Levothyroxine Sodium (Synthroid) 75 mcg PO DAILY@0600 [facility] Last Admin: 08/18/17 05:48 Dose: 75 mcg Metoprolol Succinate (Toprol Xl) 25 mg PO QDAY [facility] Last Admin: 08/18/17 09:55 Dose: 25 mg Oxycodone/Acetaminophen (Percocet 5/325) 1 tab PO Q6H PRN PRN Reason: Pain, Moderate (4-6) Pregabalin (Lyrica) 150 mg PO BID [facility] Last Admin: 08/18/17 09:55 Dose: 150 mg Review of Systems All systems: negative Exam - Constitutional Vitals: Temp Pulse Resp BP Pulse Ox 97.8 F 61 18 152/52 93 08/18/17 07:57 08/18/17 07:57 08/18/17 07:57 08/18/17 07:57 08/18/17 07:57 General appearance: Present: no acute distress - EENT Eyes: Present: EOM intact ENT: hearing intact - Neck Neck: Present: supple - Respiratory Respiratory effort: normal - Extremities Extremities: no ischemia, normal temperature, abnormal (lower extremity is bandaged pictures were recently taken during her wound change. These pictures were evaluated. she has a long eschar over the medial portion of her right lower leg with bilateral hemosiderin deposits suggestive of chronic venous insufficiency) - Psychiatric Psychiatric: appropriate mood/affect, intact judgment & insight, cooperative - Neurologic Neurologic: no focal deficits Results - Labs CBC & Chem 7: 08/18/17 05:15 08/18/17 05:15 Labs: Abnormal lab results 08/17/17 08/18/17 08/18/17 Range/Units 21:02 05:15 05:15 WBC 13.2 H (4.5-11.0) K/mm3 MCH 26 L (28-32) pg BUN 24 H (7-17) mg/dL Glucose 193 H (65-100) mg/dL POC Glucose 110 H (70-105) Albumin 2.8 L (3.9-5) g/dL 08/18/17 08/18/17 Range/Units 06:36 11:28 WBC (4.5-11.0) K/mm3 MCH (28-32) pg BUN (7-17) mg/dL Glucose (65-100) mg/dL POC Glucose 208 H 228 H (70-105) Albumin (3.9-5) g/dL Assessment and Plan This patient was admitted with right lower extremity cellulitis with multidrug resistant bacteria. The infectious disease service has been consulted, and antibiotics have been prescribed. She is followed by the [facility]'s outpatient wound care clinic for local wound care. A vascular surgery consult has been requested to further evaluate and assist with management. We discussed the importance of treating her infection, and maintaining good local wound care. We also discussed proper technique for lower extremity elevation, and the importance of compression therapy. I recommended the patient follow-up as an outpatient to be evaluated for venous reflux and possible ablation therapy. She states understanding and agrees to comply. We will see the patient again as needed while she is admitted. I gave the patient a card and recommended she follow up in our office in the next 1-2 weeks. - Patient Problems (1) Cellulitis of right lower extremity Current Visit: Yes Status: Acute (2) Venous insufficiency of both lower extremities Current Visit: Yes Status: Acute (3) COPD (chronic obstructive pulmonary disease) Current Visit: Yes Status: Acute (4) Hypothyroidism associated with surgical procedure Current Visit: Yes Status: Acute (5) Diabetes Current Visit: Yes Status: Acute (6) HTN (hypertension) Current Visit: Yes Status: Acute
[2017-08-18] MEDS: BROVANA NEBU IH SCH (21:16)
[2017-08-18] MEDS: PULMICORT IH SCH (21:16)
[2017-08-18] MEDS: LEVEMIR SUB-Q SCH (21:46)
[2017-08-18] MEDS: PERCOCET 5/325 PO PRN (21:56)
--- NOTE | 2017-08-18 23:49 | Physician Progress Note ---
WOUND PROGRESS NOTE Currently in [facility], Room 371. SUBJECTIVE: Subjectively, doing well, no complaints. OBJECTIVE: VITAL SIGNS: Remained stable. Temperature 97.8, pulse 61, respirations 20, blood pressure 152/52. HEENT: Head normocephalic, atraumatic. HEART: S1, S2. LUNGS: Good air entry. ABDOMEN: Benign. EXTREMITIES: Wounds are clean, dry and intact at this particular time. IMAGING: Await arterial Dopplers and venous Dopplers. ASSESSMENT AND PLAN: Leg ulcers, venous stasis, venous insufficiency. We will await Dopplers. Await Vascular input. Discussed with Dr. Son who has the patient on aggressive antibiotic regimen. Rest of medical issues per hospitalist. We will note blood pressure and blood sugar appear much improved today. JOB# [id number] SKF/NTS
[2017-08-19] MEDS: MERREM 1,000 MG in NACL 0.9% 20 ML IV SCH ×3 (06:31→22:44)
[2017-08-19] MEDS: SYNTHROID PO SCH ×2 (06:31→06:32)
[2017-08-19] MEDS: LASIX PO SCH ×2 (06:33→18:20)
[2017-08-19] MEDS: BROVANA NEBU IH SCH ×2 (08:01→22:36)
[2017-08-19] MEDS: PULMICORT IH SCH ×2 (08:01→22:36)
[2017-08-19] MEDS: PROVENTIL IH SCH ×2 (08:01→22:37)
--- NOTE | 2017-08-19 08:56 | Discharge Summary ---
Providers - Providers Date of Admission: 08/16/17 12:04 Attending physician: STEVE PERAZA MD 08/16/17 11:52 Consult to Physician [CONS] Routine Consulting Provider: INFECTIOUS DISEASE Katty COOPER Reason For Exam: RT. LEG CELLULITIS, RT. LEG WOUND Place consult to:: Dr Brooke Notified:: yes Phone number called:: [phone] Time called:: 13:20 Comment:: I spoke to Dr Brooke to notify her 08/16/17 11:55 Consult to Physician [CONS] Routine Consulting Provider: JOSELINE GREY Reason For Exam: RT. LEG CELLULITIS & RT. LEG WOUND Place consult to:: Abdelrahman Notified:: yes Phone number called:: [phone] If yes, spoke with:: Marly Time called:: 14:05 08/16/17 16:14 Consult to Wound/ET Nurse [CONS] Routine Reason For Exam: wound eval 08/17/17 14:37 Consult to Physician [CONS] Routine Consulting Provider: ZAC SUH Reason For Exam: venous leg ulcer Place consult to:: Dr Suh Notified:: yes Phone number called:: in house Was contact made?: Yes If yes, spoke with:: Lew Nguyen Time called:: 15:07 08/18/17 11:52 Consult to Case Management [CONS] Stat Services Needed at Discharge: Other Notified:: front tender Additional Physician Instructions: [facility] Ewelina Brooke MD M [phone] O [phone] OUTPATIENT PARENTERAL ANTIBIOTIC THERAPY ORDERS Diagnoses:right leg infected venous ulcer due to MEDICAL REVIEW COORDINATOR-GNRs Antimicrobial administration: meropenem 1 g IV q 8h total 2 weeks from 08/16 until 08/29/17 Lines: PICC Lab monitoring: CBC, CMP, CRP once a week preferly on Wednesday morning. Please fax results to [phone] and call [phone] for critical lab results. Ewelina Brooke Date: 08/18/17 08/19/17 08:51 Consult to Dietitian/Nutrition [CONS] Routine Physician Instructions: Reason For Exam: Reason for Consult: Malnutrition Primary care physician: LIBERTAD RODRIGUEZ Hospitalization Hospital course: ) Chronic venous right leg ulcer: initially admitted at [facility] in November 2016 s/p debridement. 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 -Wound cx on 07/15 MDR-Proteus, Klebsiella, Pseudomonas, E coli and GNR 2) Venous insufficiency Plan: -STRICT contact isolation due to MEDICAL REVIEW COORDINATOR -continue meropenem day 3 -upon discharge will do meropenem 1 g IV q 8h total 2 weeks from 08/16 until -PICC line -continue wound care This pt is a 77-year-old -[place] female that was admitted on 2016 due to right lower extremity cellulitis. She has a history of venous stasis ulcerations, and is being followed by the outpatient wound care clinic at [facility]. Wound cultures showed multi drug resistant bacteria (Wound cx on 06/10/17 grew MEDICAL REVIEW COORDINATOR-Proteus, Klebsiella, E faecalis and E coli. ,Wound cx on 07/15 MDR-Proteus, Klebsiella, Pseudomonas, E coli and GNR). An infectious disease consult was placed, and the patient is currently receiving antibiotics. A vascular surgery consult has been requested to further evaluate. She has previously been evaluated by Dr. Frank with [facility]. She reportedly had a venous duplex that confirmed reflux, and they had discussed venous ablation to her left lower extremity. She states that she developed wounds to both legs in November of this year. The wounds on the left have since healed. She elevates her legs frequently (by report), but she has not used compression hose routinely. Disposition: [id number] HOME UNDER HOME [facility] Time spent for discharge: 35 mins Core Measure Documentation - Palliative Care Palliative Care/ Comfort Measures: Not Applicable Exam - Constitutional Vitals: Temp Pulse Resp BP Pulse Ox 98.2 F 64 20 146/40 95 08/18/17 22:40 08/18/17 22:40 08/19/17 07:00 08/18/17 22:40 08/18/17 22:40 Plan Follow up with: LIBERTAD RODRIGUEZ MD [Primary Care Provider] - 7 Days
--- NOTE | 2017-08-19 09:00 | Event Note ---
Date: 08/19/17 Discussed with ID and vascular. If no planned Debridement will Discharge today with meropenem 1 g IV q 8h total 2 weeks from 08/16 until 08/29/17. Will order PICC line. picc line should be discontinued by agency after abx. Patient to follow with vascular and wound care.
[2017-08-19] MEDS: NOVOLOG SUB-Q SCH ×7 (09:06→22:45)
[2017-08-19] MEDS: TOPROL XL PO SCH (09:07)
[2017-08-19] MEDS: LYRICA PO SCH ×2 (09:07→22:45)
--- NOTE | 2017-08-19 10:57 | Progress Note ---
<HALINA MAC - Last Filed: 08/19/17 10:57> Assessment and Plan Assessment and plan: 77 YO Female with HTN, DM, COPD, JAMES on CPAP, MO, Metabolic syndrome admitted directly from wound clinic for treatment of RLE cellulitis. Pt seen and evaluated upon arrival. Pt denies fever, chills, CP, Palpitations, NVD, syndope , prolonged travel/immobility, individual/family history of DVT/PE, unintentional weight loss or night sweats. Pt denies any complaints at time of exam. Cellulitis of right lower extremity ID following - Continue meropenem, Dr Hansen consulted, Contact Isolation due to MANAGER FIRE-Proteus- wound culture dated 01/20 Patient to be discharged with PICC for continued meropenem for two weeks Diabetes Mellitus with hyperglycemia ADA diet Sliding Scale insulin, accu check Obstructive sleep apnea CPAP at night, supplemental oxygen, nebs prn, incentive spirometry, early ambulation, HTN (hypertension) Hydralazine initiated PRN, continue home meds Monitor bp q shift Hypothyroidism Continue Levothyroxine Leukocytosis Likely from cellulitis Continue IV abs Morbid obesity Patient counselled on weight loss COPD Initiate Brovana and Pulmicort scheduled Albuterol PRN Mild to moderate malnutrition Order nutrition consult DVT prophylaxis SCDs History Interval history: Patient awake and alert receiving breathing treatment. Complained of R leg pain especially with movement. Denies SOB, CP, NV. Hospitalist Physical - Constitutional Vitals: Temp Pulse Resp BP Pulse Ox 97.8 F 66 18 146/50 92 08/19/17 08:32 08/19/17 08:32 08/19/17 08:32 08/19/17 09:07 08/19/17 08:32 General appearance: Present: no acute distress, obese - EENT Eyes: Present: PERRL, EOM intact ENT: hearing intact, clear oral mucosa, poor dentition - Neck Neck: Present: supple, normal ROM - Respiratory Respiratory effort: normal Respiratory: bilateral: wheezing - Cardiovascular Rhythm: regular Heart Sounds: Present: S1 & S2 - Extremities Extremities: no ischemia Extremity abnormal: edema Peripheral Pulses: within normal limits - Abdominal General gastrointestinal: soft, non-tender - Integumentary Integumentary: Present: warm (R leg ulcer), dry - Psychiatric Psychiatric: appropriate mood/affect, intact judgment & insight - Neurologic Neurologic: CNII-XII intact, moves all extremities - Allied Health Allied health notes reviewed: nursing Results - Labs CBC & Chem 7: 08/18/17 05:15 08/18/17 05:15 Labs: Laboratory Last Values WBC 13.2 K/mm3 (4.5-11.0) H 08/18/17 05:15 RBC 4.57 M/mm3 (3.65-5.03) 08/18/17 05:15 Hgb 11.8 gm/dl (10.1-14.3) 08/18/17 05:15 Hct 36.8 % (30.3-42.9) 08/18/17 05:15 MCV 81 fl (79-97) 08/18/17 05:15 MCH 26 pg (28-32) L 08/18/17 05:15 MCHC 32 % (30-34) 08/18/17 05:15 RDW 15.1 % (13.2-15.2) 08/18/17 05:15 Plt Count 295 K/mm3 (140-440) 08/18/17 05:15 Lymph # Sr Risk Management Consultant 08/17/17 09:33 Add Manual Diff Complete 08/17/17 09:33 Total Counted 100 08/17/17 09:33 Seg Neuts % (Manual) 37.0 % (40.0-70.0) L 08/17/17 09:33 Band Neutrophils % 0 % 08/17/17 09:33 Lymphocytes % (Manual) 54.0 % (13.4-35.0) H 08/17/17 09:33 Reactive Lymphs % (Man) 0 % 08/17/17 09:33 Monocytes % (Manual) 7.0 % (0.0-7.3) 08/17/17 09:33 Eosinophils % (Manual) 2.0 % (0.0-4.3) 08/17/17 09:33 Basophils % (Manual) 0 % (0.0-1.8) 08/17/17 09:33 Metamyelocytes % 0 % 08/17/17 09:33 Myelocytes % 0 % 08/17/17 09:33 Promyelocytes % 0 % 08/17/17 09:33 Blast Cells % 0 % 08/17/17 09:33 Nucleated RBC % Not Reportable 08/17/17 09:33 Seg Neutrophils # Man 5.4 K/mm3 (1.8-7.7) 08/17/17 09:33 Band Neutrophils # 0.0 K/mm3 08/17/17 09:33 Lymphocytes # (Manual) 7.8 K/mm3 (1.2-5.4) H 08/17/17 09:33 Abs React Lymphs (Man) 0.0 K/mm3 08/17/17 09:33 Monocytes # (Manual) 1.0 K/mm3 (0.0-0.8) H 08/17/17 09:33 Eosinophils # (Manual) 0.3 K/mm3 (0.0-0.4) 08/17/17 09:33 Basophils # (Manual) 0.0 K/mm3 (0.0-0.1) 08/17/17 09:33 Metamyelocytes # 0.0 K/mm3 08/17/17 09:33 Myelocytes # 0.0 K/mm3 08/17/17 09:33 Promyelocytes # 0.0 K/mm3 08/17/17 09:33 Blast Cells # 0.0 K/mm3 08/17/17 09:33 WBC Morphology Not Reportable 08/17/17 09:33 Hypersegmented Neuts Not Reportable 08/17/17 09:33 Hyposegmented Neuts Not Reportable 08/17/17 09:33 Hypogranular Neuts Not Reportable 08/17/17 09:33 Smudge Cells Not Reportable 08/17/17 09:33 Toxic Granulation Not Reportable 08/17/17 09:33 Toxic Vacuolation Not Reportable 08/17/17 09:33 Dohle Bodies Not Reportable 08/17/17 09:33 Pelger-Huet Anomaly Not Reportable 08/17/17 09:33 Hailey Rods Not Reportable 08/17/17 09:33 Platelet Estimate Appears normal 08/17/17 09:33 Clumped Platelets Not Reportable 08/17/17 09:33 Plt Clumps, EDTA Not Reportable 08/17/17 09:33 Large Platelets Not Reportable 08/17/17 09:33 Giant Platelets Not Reportable 08/17/17 09:33 Platelet Satelliting Not Reportable 08/17/17 09:33 Plt Morphology Comment Not Reportable 08/17/17 09:33 RBC Morphology Not Reportable 08/17/17 09:33 Dimorphic RBCs Not Reportable 08/17/17 09:33 Polychromasia Not Reportable 08/17/17 09:33 Hypochromasia 1+ 08/17/17 09:33 Poikilocytosis Not Reportable 08/17/17 09:33 Anisocytosis Not Reportable 08/17/17 09:33 Microcytosis Not Reportable 08/17/17 09:33 Macrocytosis Not Reportable 08/17/17 09:33 Spherocytes Not Reportable 08/17/17 09:33 Pappenheimer Bodies Not Reportable 08/17/17 09:33 Sickle Cells Not Reportable 08/17/17 09:33 Target Cells Not Reportable 08/17/17 09:33 Tear Drop Cells Not Reportable 08/17/17 09:33 Ovalocytes Not Reportable 08/17/17 09:33 Helmet Cells Not Reportable 08/17/17 09:33 [place] Bodies Not Reportable 08/17/17 09:33 [place] Rings Not Reportable 08/17/17 09:33 [place] Cells Not Reportable 08/17/17 09:33 Bite Cells Not Reportable 08/17/17 09:33 Crenated Cell Not Reportable 08/17/17 09:33 Elliptocytes Not Reportable 08/17/17 09:33 Acanthocytes (Spur) Not Reportable 08/17/17 09:33 Rouleaux Not Reportable 08/17/17 09:33 Hemoglobin C Crystals Not Reportable 08/17/17 09:33 Schistocytes Not Reportable 08/17/17 09:33 Malaria parasites Not Reportable 08/17/17 09:33 Alonso Bodies Not Reportable 08/17/17 09:33 Hem Pathologist Commnt No 08/17/17 09:33 Sodium 140 mmol/L (137-145) 08/18/17 05:15 Potassium 4.2 mmol/L (3.6-5.0) 08/18/17 05:15 Chloride 101.6 mmol/L (98-107) 08/18/17 05:15 Carbon Dioxide 28 mmol/L (22-30) 08/18/17 05:15 Anion Gap 15 mmol/L 08/18/17 05:15 BUN 24 mg/dL (7-17) H 08/18/17 05:15 Creatinine 1.1 mg/dL (0.7-1.2) 08/18/17 05:15 Estimated GFR 58 ml/min 08/18/17 05:15 BUN/Creatinine Ratio 22 % 08/18/17 05:15 Glucose 193 mg/dL (65-100) H 08/18/17 05:15 POC Glucose 202 (70-105) H 08/19/17 06:17 Calcium 8.5 mg/dL (8.4-10.2) 08/18/17 05:15 Total Bilirubin 0.50 mg/dL (0.1-1.2) 08/18/17 05:15 AST 10 units/L (5-40) 08/18/17 05:15 ALT 10 units/L (7-56) 08/18/17 05:15 Alkaline Phosphatase 83 units/L (35-129) 08/18/17 05:15 C-Reactive Protein 0.90 mg/dL (0.00-1.30) 08/17/17 09:33 Total Protein 6.8 g/dL (6.3-8.2) 08/18/17 05:15 Albumin 2.8 g/dL (3.9-5) L 08/18/17 05:15 Albumin/Globulin Ratio 0.7 % 08/18/17 05:15 <STEVE PERAZA - Last Filed: 08/19/17 15:15> Assessment and Plan Assessment and plan: I saw and evaluated the patient. I agree with the findings and the plan of care as documented in the Physician Fitness Technician's~note, with the following corrections and additions. Vascular ulcer- Vascular input noted. no debridement at this time. Family upset about placement as they were not notified, and claims patient is demented I have placed a call and expect to speak to daughter. Patient is AAO X3 and went to wound care by her self. Hospitalist Physical - Constitutional Vitals: Temp Pulse Resp BP Pulse Ox 97.8 F 66 18 146/50 92 08/19/17 08:32 08/19/17 08:32 08/19/17 08:32 08/19/17 09:07 08/19/17 08:32 Results - Labs CBC & Chem 7: 08/18/17 05:15 08/18/17 05:15 Labs: Laboratory Last Values WBC 13.2 K/mm3 (4.5-11.0) H 08/18/17 05:15 RBC 4.57 M/mm3 (3.65-5.03) 08/18/17 05:15 Hgb 11.8 gm/dl (10.1-14.3) 08/18/17 05:15 Hct 36.8 % (30.3-42.9) 08/18/17 05:15 MCV 81 fl (79-97) 08/18/17 05:15 MCH 26 pg (28-32) L 08/18/17 05:15 MCHC 32 % (30-34) 08/18/17 05:15 RDW 15.1 % (13.2-15.2) 08/18/17 05:15 Plt Count 295 K/mm3 (140-440) 08/18/17 05:15 Lymph # Sr Risk Management Consultant 08/17/17 09:33 Add Manual Diff Complete 08/17/17 09:33 Total Counted 100 08/17/17 09:33 Seg Neuts % (Manual) 37.0 % (40.0-70.0) L 08/17/17 09:33 Band Neutrophils % 0 % 08/17/17 09:33 Lymphocytes % (Manual) 54.0 % (13.4-35.0) H 08/17/17 09:33 Reactive Lymphs % (Man) 0 % 08/17/17 09:33 Monocytes % (Manual) 7.0 % (0.0-7.3) 08/17/17 09:33 Eosinophils % (Manual) 2.0 % (0.0-4.3) 08/17/17 09:33 Basophils % (Manual) 0 % (0.0-1.8) 08/17/17 09:33 Metamyelocytes % 0 % 08/17/17 09:33 Myelocytes % 0 % 08/17/17 09:33 Promyelocytes % 0 % 08/17/17 09:33 Blast Cells % 0 % 08/17/17 09:33 Nucleated RBC % Not Reportable 08/17/17 09:33 Seg Neutrophils # Man 5.4 K/mm3 (1.8-7.7) 08/17/17 09:33 Band Neutrophils # 0.0 K/mm3 08/17/17 09:33 Lymphocytes # (Manual) 7.8 K/mm3 (1.2-5.4) H 08/17/17 09:33 Abs React Lymphs (Man) 0.0 K/mm3 08/17/17 09:33 Monocytes # (Manual) 1.0 K/mm3 (0.0-0.8) H 08/17/17 09:33 Eosinophils # (Manual) 0.3 K/mm3 (0.0-0.4) 08/17/17 09:33 Basophils # (Manual) 0.0 K/mm3 (0.0-0.1) 08/17/17 09:33 Metamyelocytes # 0.0 K/mm3 08/17/17 09:33 Myelocytes # 0.0 K/mm3 08/17/17 09:33 Promyelocytes # 0.0 K/mm3 08/17/17 09:33 Blast Cells # 0.0 K/mm3 08/17/17 09:33 WBC Morphology Not Reportable 08/17/17 09:33 Hypersegmented Neuts Not Reportable 08/17/17 09:33 Hyposegmented Neuts Not Reportable 08/17/17 09:33 Hypogranular Neuts Not Reportable 08/17/17 09:33 Smudge Cells Not Reportable 08/17/17 09:33 Toxic Granulation Not Reportable 08/17/17 09:33 Toxic Vacuolation Not Reportable 08/17/17 09:33 Dohle Bodies Not Reportable 08/17/17 09:33 Pelger-Huet Anomaly Not Reportable 08/17/17 09:33 Hailey Rods Not Reportable 08/17/17 09:33 Platelet Estimate Appears normal 08/17/17 09:33 Clumped Platelets Not Reportable 08/17/17 09:33 Plt Clumps, EDTA Not Reportable 08/17/17 09:33 Large Platelets Not Reportable 08/17/17 09:33 Giant Platelets Not Reportable 08/17/17 09:33 Platelet Satelliting Not Reportable 08/17/17 09:33 Plt Morphology Comment Not Reportable 08/17/17 09:33 RBC Morphology Not Reportable 08/17/17 09:33 Dimorphic RBCs Not Reportable 08/17/17 09:33 Polychromasia Not Reportable 08/17/17 09:33 Hypochromasia 1+ 08/17/17 09:33 Poikilocytosis Not Reportable 08/17/17 09:33 Anisocytosis Not Reportable 08/17/17 09:33 Microcytosis Not Reportable 08/17/17 09:33 Macrocytosis Not Reportable 08/17/17 09:33 Spherocytes Not Reportable 08/17/17 09:33 Pappenheimer Bodies Not Reportable 08/17/17 09:33 Sickle Cells Not Reportable 08/17/17 09:33 Target Cells Not Reportable 08/17/17 09:33 Tear Drop Cells Not Reportable 08/17/17 09:33 Ovalocytes Not Reportable 08/17/17 09:33 Helmet Cells Not Reportable 08/17/17 09:33 [place] Bodies Not Reportable 08/17/17 09:33 [place] Rings Not Reportable 08/17/17 09:33 [place] Cells Not Reportable 08/17/17 09:33 Bite Cells Not Reportable 08/17/17 09:33 Crenated Cell Not Reportable 08/17/17 09:33 Elliptocytes Not Reportable 08/17/17 09:33 Acanthocytes (Spur) Not Reportable 08/17/17 09:33 Rouleaux Not Reportable 08/17/17 09:33 Hemoglobin C Crystals Not Reportable 08/17/17 09:33 Schistocytes Not Reportable 08/17/17 09:33 Malaria parasites Not Reportable 08/17/17 09:33 Alonso Bodies Not Reportable 08/17/17 09:33 Hem Pathologist Commnt No 08/17/17 09:33 Sodium 140 mmol/L (137-145) 08/18/17 05:15 Potassium 4.2 mmol/L (3.6-5.0) 08/18/17 05:15 Chloride 101.6 mmol/L (98-107) 08/18/17 05:15 Carbon Dioxide 28 mmol/L (22-30) 08/18/17 05:15 Anion Gap 15 mmol/L 08/18/17 05:15 BUN 24 mg/dL (7-17) H 08/18/17 05:15 Creatinine 1.1 mg/dL (0.7-1.2) 08/18/17 05:15 Estimated GFR 58 ml/min 08/18/17 05:15 BUN/Creatinine Ratio 22 % 08/18/17 05:15 Glucose 193 mg/dL (65-100) H 08/18/17 05:15 POC Glucose 334 (70-105) H 08/19/17 12:21 Calcium 8.5 mg/dL (8.4-10.2) 08/18/17 05:15 Total Bilirubin 0.50 mg/dL (0.1-1.2) 08/18/17 05:15 AST 10 units/L (5-40) 08/18/17 05:15 ALT 10 units/L (7-56) 08/18/17 05:15 Alkaline Phosphatase 83 units/L (35-129) 08/18/17 05:15 C-Reactive Protein 0.90 mg/dL (0.00-1.30) 08/17/17 09:33 Total Protein 6.8 g/dL (6.3-8.2) 08/18/17 05:15 Albumin 2.8 g/dL (3.9-5) L 08/18/17 05:15 Albumin/Globulin Ratio 0.7 % 08/18/17 05:15
--- NOTE | 2017-08-19 11:17 | XRay Report ---
AP CHEST: HISTORY: Left arm PICC placement The left arm PICC tracks superiorly in the left jugular vein and is last visualized at the level of C3-4. Adjustment or replacement is recommended. Please correlate with the image. Borderline to mild cardiomegaly and pulmonary venous congestion are identified. The lungs are grossly clear. IMPRESSION: The left arm PICC terminates in the left internal jugular vein.
--- NOTE | 2017-08-19 11:20 | Query-Infection ---
Dear Date:__08/19/2017 De Icer Installer/CDS:__Jaymie Phone#:__[phone] Exercise your independent professional judgment when responding to this query. Questions asked do not imply a particular answer is desired or expected. We greatly appreciate your clarification on this issue. Clinical Documentation States: 77 Year old female was admitted on 08/16/2017 directly from wound clinic for treatment of RLE cellulitis. 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 glucose >110 mg/dl) w/o diabetes Inflammatory parameters [X] Leukocytosis (white blood cell count >12,000/l) [ ] Leukopenia (white blood cell count <4,000/l) [ ] Bandemia (immature WBC > 10%) [ ] Leucocyte Left Shift [ ] Plasma procalcitonin>2 SD above the normal value Hemodynamic and tissue perfusion parameters [ ] Arterial hypotension(SBP <90 mmHg, MAP <70 mmHg,or a SBP drop >40 mmHg in adults) [ ] Hyperlactatemia (>3 mmol/l) [ ] Anion Gap (> 11mEG/l) [ ] Decreased capillary refill or mottling Organ dysfunction parameters [ ] Arterial hypoxemia (PaO2/FIO2 <300) [ ] Creatinine increase =0.5 mg/dl [ ] Acute oliguria (urine output <0.5 ml | kg |h or 45 mM/l for at least 2 hrs) [ ] Coagulation abnormalities (INR >1.5 or activated partial thromboplastin time >60 s) [ ] Ileus (absent tal wel sounds) [ ] Thrombocytopenia (platelet count <100,000/l) [ ] Hyperbilirubinemia (plasma total bilirubin >4 mg/dl) According to the clinical indications above, can Bacteremia be further specified? If so, please indicate below and in your Progress Notes and/ or Discharge Summary. Indicate if the condition was present on admission. PHYSICIAN RESPONSE: [ ] Sepsis [ ] Severe Sepsis [ ] Septic Shock [ ] Septicemia [ ] Sepsis now resolved [ ] SIRS due to non-infectious cause with organ dysfunction [ x] SIRS due to non-infectious cause without organ dysfunction [ ] Other: [ ] Comment/Explanation: Present on Admission: [ y] Yes (Y) [ ] Clinically undeterminable (W) [ ] No (N) [ ] Ruled Out Please also document response in your Progress Notes and/or Discharge Summary and indicate if the condition was present on admission Notes: SIRS/ SIRS WITH ORGAN DYSFUNCTION Systemic inflammatory response syndrome (SIRS) generally refers to the systemic response to trauma/andrade or other insult such as Acute Myocardial Infarction, Acute Pancreatitis, and Major Surgery with symptoms including fever, tachycardia , tachypnea, and leukocytosis (1). BACTEREMIA Presence of viable bacteria in the circulating blood (2). This term is reserved for patients that do not manifest above SIRS response. SEPTICEMIA Generally refers to a systemic disease associated with the presence of pathological microorganisms or toxins in the blood, which can include bacteria, viruses, fungi or other organisms (1). SEPSIS Generally refers to SIRS due infection (1). SEVERE SEPSIS Generally refers to sepsis associated with acute organ dysfunction (1). SEPTIC SHOCK Generally refers to circulatory failure associated with severe sepsis (2), and defined as hypotension or hypoperfusion despite adequate fluid resuscitation (1 hour) (3). REFERENCES: 1. [place] [employer]/Society of Critical Care Medicine Consensus Conference. Definitions for sepsis and organ failure and guidelines for the use of innovative therapies in sepsis. Critical Care Med 1992;20:864 - 74. 2. Alvaro y MM, Daniele MP, Hill CASI, John E, Iain D, Augustine D, Hdz J, Morrill SM , Arie JL, Cheko G; International Sepsis Definitions Conference. 2001 SCCM/ESICM/ACCP/ATS/SIS International Sepsis Definitions Conference. Intensive Care Med. 2002;29(4):530-8. Epub 2002Dec 01. Review. PubMed PMID:[id number] 3. ICD-9-CM Official Guidelines for Coding and Reporting 4. Medscape Drugs, Diseases and Procedures references 5. [employer] Textbook of Internal Medicine. 18th Edition MTDD
--- NOTE | 2017-08-19 11:39 | Progress Note ---
Assessment and Plan Assessment: 1) Chronic venous right leg ulcer: initially admitted at [facility] in November 2016 s/p debridement. -Wound cx on 06/10/17 grew HEAD OF TRAINING AND DEVELOPMENT-Proteus, Klebsiella, E faecalis and E coli. -Wound cx on 07/15 MDR-Proteus, Klebsiella, Pseudomonas, E coli and GNR 2) Venous insufficiency Plan: -STRICT contact isolation due to HEAD OF TRAINING AND DEVELOPMENT -continue meropenem day 3 -upon discharge will do meropenem 1 g IV q 8h total 2 weeks from 08/16 until -continue wound care I am signing off Thank you Dr Hand for your consultation, will follow up with you. Ewelina Escobar MD Infectious Diseases Specialist [facility] ([facility] M [phone] O [phone] Subjective Date of service: 08/19/17 Principal diagnosis: leg wound Interval history: Feels ok no fever, some pain at leg wound Microbiology: Blood cultures: Urine cultures: Respiratory cultures: Wound cultures: 06/10 HEAD OF TRAINING AND DEVELOPMENT-Proteus, Klebsiella, E faecalis and E coli 07/15 MDR-Proteus, Klebsiella, Pseudomonas, E coli and GNR Current Antimicrobials: meropenem 08/16 Objective - Exam Narrative Exam: General appearance: Alert in NAD, conversant Eyes: anicteric sclerae, moist conjunctivae; no lid-lag; PERRLA HENT: Atraumatic; oropharynx clear Neck: Trachea midline; supple, no thyromegaly or lymphadenopathy Lungs: CTA CV: RRR Abdomen: Soft, non-tender Extremities: right leg wound covered with dressings Skin: Normal temperature, turgor and texture; no rash, ulcers or subcutaneous nodules Psych: Appropriate affect, alert and oriented to person, place and time. Neuro: alert and oriented x 3. Moving all extermities Lines: No CVL / PICC - Constitutional Vitals: Vital Signs Temp Pulse Resp BP Pulse Ox 97.8 F 66 18 146/50 92 08/19/17 08:32 08/19/17 08:32 08/19/17 08:32 08/19/17 09:07 08/19/17 08:32 Temperature -Last 24 Hours Temperature 97.8 F Temperature 98.2 F Temperature 98.0 F - Labs CBC & Chem 7: 08/18/17 05:15 08/18/17 05:15 Labs: Abnormal lab results 08/18/17 08/18/17 08/19/17 Range/Units 11:28 16:28 06:17 POC Glucose 228 H 162 H 202 H (70-105)
--- NOTE | 2017-08-19 14:13 | XRay Report ---
AP CHEST: HISTORY: PICC placement AP view of the chest demonstrates a normal mediastinal and cardiac contour with clear lungs and normal bony and soft tissue structures. Left arm PICC terminates in the lower SVC. IMPRESSION: Unremarkable AP chest. The left arm PICC terminates in the lower SVC.
--- NOTE | 2017-08-19 14:53 | Progress Note ---
Assessment and Plan Venous ulcers of the right lower extremity. No need for further debridement. Recommend followup with [facility] for venous insuffiency management and venous ablation procedures to allow the wound to heal without recurrence. Subjective Date of service: 08/19/17 Principal diagnosis: leg wound Interval history: Palpable pedal pulses bilaterally. Has some granulating wounds of the right lower extremity. Objective - Constitutional Vitals: Vital Signs - 12hr 08/19/17 08/19/17 08/19/17 07:00 08:32 09:07 Temperature 97.8 F Pulse Rate 66 Respiratory 18 Rate Respiratory 20 Rate [Right Leg ] Blood Pressure 130/48 146/50 O2 Sat by Pulse 92 Oximetry General appearance: Present: no acute distress - EENT Eyes: EOM intact ENT: hearing intact - Respiratory Respiratory effort: normal Extremities: pulses intact, normal temperature, normal color, abnormal ( granulating wounds of the right leg/calf) - Gastrointestinal General gastrointestinal: Present: soft - Labs CBC & Chem 7: 08/18/17 05:15 08/18/17 05:15 Labs: Abnormal lab results 08/18/17 08/19/17 08/19/17 Range/Units 16:28 06:17 12:21 POC Glucose 162 H 202 H 334 H (70-105)
--- NOTE | 2017-08-19 15:37 | Discharge Summary ---
Providers - Providers Date of Admission: 08/16/17 12:04 Date of discharge: 08/20/17 Attending physician: STEVE PERAZA MD 08/16/17 11:52 Consult to Physician [CONS] Routine Consulting Provider: INFECTIOUS DISEASE Katty COOPER Reason For Exam: RT. LEG CELLULITIS, RT. LEG WOUND Place consult to:: Dr Brooke Notified:: yes Phone number called:: [phone] Time called:: 13:20 Comment:: I spoke to Dr Brooke to notify her 08/16/17 11:55 Consult to Physician [CONS] Routine Consulting Provider: JOSELINE GREY Reason For Exam: RT. LEG CELLULITIS & RT. 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 Please fax results to [phone] and call [phone] for critical lab results. Ewelina Brooke Date: 08/18/17 08/19/17 08:51 Consult to Dietitian/Nutrition [CONS] Routine Physician Instructions: Reason For Exam: Reason for Consult: Malnutrition Primary care physician: LIBERTAD RODRIGUEZ Hospitalization Condition: Good Hospital course: 77 YO Female with HTN, DM, COPD, JAMES on CPAP, MO, Metabolic syndrome admitted directly from wound clinic for treatment of RLE ulcer and cellulitis. Pt seen and evaluated upon arrival. Pt denies fever, chills, CP, Palpitations, NVD, syndope, prolonged travel/immobility, individual/family history of DVT/PE, unintentional weight loss or night sweats. Pt denies any complaints at time of exam. BLE ARTERIAL / VENOUS DOPPLER was completed and showed no evidence of DVT/SVT. Patient was treated with IV antibiotics and resumed her home medications. PICC line was place for patient to continue outpatient antibiotics. Discharge diagnosis Cellulitis of right lower extremity Diabetes Mellitus with hyperglycemia Obstructive sleep apnea HTN (hypertension) Hypothyroidism Leukocytosis Morbid obesity COPD Mild to moderate malnutrition DVT prophylaxis Disposition: DC/[place]-03 SNF [facility] Core Measure Documentation - Palliative Care Palliative Care/ Comfort Measures: Not Applicable - Core Measures Any of the following diagnoses?: none Exam - Constitutional Vitals: Temp Pulse Resp BP Pulse Ox 97.8 F 66 18 146/50 92 08/19/17 08:32 08/19/17 08:32 08/19/17 08:32 08/19/17 09:07 08/19/17 08:32 General appearance: Present: no acute distress, well-nourished - EENT Eyes: Present: PERRL ENT: hearing intact, clear oral mucosa - Neck Neck: Present: supple, normal ROM - Respiratory Respiratory effort: normal Respiratory: bilateral: CTA - Cardiovascular Heart Sounds: Present: S1 & S2. Absent: rub, click - Extremities Extremities: pulses symmetrical Extremity abnormal: edema (R>L) Peripheral Pulses: within normal limits - Abdominal General gastrointestinal: Present: soft, non-tender, non-distended, normal bowel sounds Female genitourinary: Present: deferred - Rectal Rectal Exam: deferred - Integumentary Integumentary: Present: warm (R lower extremity ulcer), dry - Musculoskeletal Musculoskeletal: gait normal, strength equal bilaterally - Psychiatric Psychiatric: appropriate mood/affect, intact judgment & insight - Neurologic Neurologic: CNII-XII intact, moves all extremities - Allied Health Allied health notes reviewed: nursing Plan Activity: fall precautions Weight Bearing Status: Weight Bear as Tolerated Diet: low fat, low cholesterol, low salt, diabetic Follow up with: LIBERTAD RODRIGUEZ MD [Primary Care Provider] - 7 Days Prescriptions: Meropenem [Merrem] 1 gm IV Q8H 14 Days vial
[2017-08-19] MEDS: LEVEMIR SUB-Q SCH (22:46)
[2017-08-20] MEDS: SYNTHROID PO SCH ×2 (06:39)
[2017-08-20] MEDS: LASIX PO SCH ×2 (06:39→17:28)
[2017-08-20] MEDS: MERREM 1,000 MG in NACL 0.9% 20 ML IV SCH ×3 (06:39→23:07)
[2017-08-20] MEDS: BROVANA NEBU IH SCH ×2 (07:33→19:44)
[2017-08-20] MEDS: PROVENTIL IH SCH ×2 (07:34→19:39)
[2017-08-20] MEDS: PULMICORT IH SCH ×2 (07:34→19:39)
[2017-08-20] MEDS: NOVOLOG SUB-Q SCH ×7 (07:47→23:07)
[2017-08-20] MEDS: LYRICA PO SCH ×2 (10:21→23:06)
[2017-08-20] MEDS: XANAX PO PRN (10:22)
[2017-08-20] MEDS: TOPROL XL PO SCH (10:22)
--- NOTE | 2017-08-20 11:38 | Vascular Lab Report ---
LOWER EXTREMITY ARTERIAL DUPLEX: REASON FOR EXAM: Peripheral arterial disease. COMMENTS ON THE RIGHT: Triphasic waveforms are seen proximally. Triphasic waveforms are seen distally. No significant velocity gradients are identified. No significant plaque is identified. Findings are consistent with normal perfusion. Findings are consistent with the ability to heal distal wounds. COMMENTS ON THE LEFT: Triphasic waveforms are seen proximally. Triphasic waveforms are seen distally. No significant velocity gradients are identified. No significant plaque is identified. Findings are consistent with normal perfusion. Findings are consistent with the ability to heal distal wounds. IMPRESSION: RIGHT: Essentially normal arterial flow. LEFT:Essentially normal arterial flow.
--- NOTE | 2017-08-20 12:07 | Vascular Lab Report ---
LOWER EXTREMITY VENOUS DUPLEX: REASON FOR EXAM: Venous ulcer. COMMENTS ON THE RIGHT: All veins visualized are freely compressible without evidence of internal echogenicity. Flow is spontaneous and phasic throughout. COMMENTS ON THE LEFT: All veins visualized are freely compressible without evidence of internal echogenicity. Flow is spontaneous and phasic throughout. IMPRESSION: No evidence of acute or chronic deep venous thrombosis in either lower extremity.
--- NOTE | 2017-08-20 15:55 | Progress Note ---
<HALINA MAC - Last Filed: 08/20/17 16:04> Assessment and Plan Assessment and plan: 77 YO Female with HTN, DM, COPD, JAMES on CPAP, MO, Metabolic syndrome admitted directly from wound clinic for treatment of RLE cellulitis. Pt seen and evaluated upon arrival. Pt denies fever, chills, CP, Palpitations, NVD, syndope , prolonged travel/immobility, individual/family history of DVT/PE, unintentional weight loss or night sweats. Pt denies any complaints at time of exam. 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-Proteus- wound culture dated 01/20 Patient to be discharged with PICC for continued meropenem for two weeks until 08/29/17 Vascular Surgeon Following recommends no need for further debridement, f/u with [facility] for venous insufficiency management and venous ablation procedures Diabetes Mellitus with hyperglycemia ADA diet Sliding Scale insulin, accu check Obstructive sleep apnea CPAP at night, supplemental oxygen, nebs prn, incentive spirometry, early ambulation, HTN (hypertension) Hydralazine initiated PRN, continue home meds Monitor bp q shift Hypothyroidism Continue Levothyroxine Leukocytosis Likely from cellulitis Continue IV abs Morbid obesity Patient counselled on weight loss COPD Initiate Brovana and Pulmicort scheduled Albuterol PRN Mild to moderate malnutrition Order nutrition consult DVT prophylaxis SCDs History Interval history: Patient awake and alert receiving breathing treatment. R leg pain decreased significantly, she hardly feels any pain at all. Denies SOB, CP, NV. Hospitalist Physical - Constitutional Vitals: Temp Pulse Resp BP Pulse Ox 98.7 F 65 20 138/52 94 08/20/17 07:23 08/20/17 07:45 08/20/17 07:45 08/20/17 07:23 08/20/17 07:23 General appearance: Present: no acute distress, well-nourished - EENT Eyes: Present: PERRL, EOM intact ENT: hearing intact, clear oral mucosa - Neck Neck: Present: supple, normal ROM - Respiratory Respiratory effort: normal Respiratory: bilateral: wheezing - Cardiovascular Rhythm: regular Heart Sounds: Present: S1 & S2 - Extremities Extremities: no ischemia Extremity abnormal: edema (RLE) Peripheral Pulses: within normal limits - Abdominal General gastrointestinal: soft, non-tender - Integumentary Integumentary: Present: warm (R LE ulcer), dry - Psychiatric Psychiatric: appropriate mood/affect, cooperative - Neurologic Neurologic: CNII-XII intact, moves all extremities - Allied Health Allied health notes reviewed: nursing Results - Labs CBC & Chem 7: 08/18/17 05:15 08/18/17 05:15 Labs: Laboratory Last Values WBC 13.2 K/mm3 (4.5-11.0) H 08/18/17 05:15 RBC 4.57 M/mm3 (3.65-5.03) 08/18/17 05:15 Hgb 11.8 gm/dl (10.1-14.3) 08/18/17 05:15 Hct 36.8 % (30.3-42.9) 08/18/17 05:15 MCV 81 fl (79-97) 08/18/17 05:15 MCH 26 pg (28-32) L 08/18/17 05:15 MCHC 32 % (30-34) 08/18/17 05:15 RDW 15.1 % (13.2-15.2) 08/18/17 05:15 Plt Count 295 K/mm3 (140-440) 08/18/17 05:15 Lymph # Training And Development Rep 08/17/17 09:33 Add Manual Diff Complete 08/17/17 09:33 Total Counted 100 08/17/17 09:33 Seg Neuts % (Manual) 37.0 % (40.0-70.0) L 08/17/17 09:33 Band Neutrophils % 0 % 08/17/17 09:33 Lymphocytes % (Manual) 54.0 % (13.4-35.0) H 08/17/17 09:33 Reactive Lymphs % (Man) 0 % 08/17/17 09:33 Monocytes % (Manual) 7.0 % (0.0-7.3) 08/17/17 09:33 Eosinophils % (Manual) 2.0 % (0.0-4.3) 08/17/17 09:33 Basophils % (Manual) 0 % (0.0-1.8) 08/17/17 09:33 Metamyelocytes % 0 % 08/17/17 09:33 Myelocytes % 0 % 08/17/17 09:33 Promyelocytes % 0 % 08/17/17 09:33 Blast Cells % 0 % 08/17/17 09:33 Nucleated RBC % Not Reportable 08/17/17 09:33 Seg Neutrophils # Man 5.4 K/mm3 (1.8-7.7) 08/17/17 09:33 Band Neutrophils # 0.0 K/mm3 08/17/17 09:33 Lymphocytes # (Manual) 7.8 K/mm3 (1.2-5.4) H 08/17/17 09:33 Abs React Lymphs (Man) 0.0 K/mm3 08/17/17 09:33 Monocytes # (Manual) 1.0 K/mm3 (0.0-0.8) H 08/17/17 09:33 Eosinophils # (Manual) 0.3 K/mm3 (0.0-0.4) 08/17/17 09:33 Basophils # (Manual) 0.0 K/mm3 (0.0-0.1) 08/17/17 09:33 Metamyelocytes # 0.0 K/mm3 08/17/17 09:33 Myelocytes # 0.0 K/mm3 08/17/17 09:33 Promyelocytes # 0.0 K/mm3 08/17/17 09:33 Blast Cells # 0.0 K/mm3 08/17/17 09:33 WBC Morphology Not Reportable 08/17/17 09:33 Hypersegmented Neuts Not Reportable 08/17/17 09:33 Hyposegmented Neuts Not Reportable 08/17/17 09:33 Hypogranular Neuts Not Reportable 08/17/17 09:33 Smudge Cells Not Reportable 08/17/17 09:33 Toxic Granulation Not Reportable 08/17/17 09:33 Toxic Vacuolation Not Reportable 08/17/17 09:33 Dohle Bodies Not Reportable 08/17/17 09:33 Pelger-Huet Anomaly Not Reportable 08/17/17 09:33 Hailey Rods Not Reportable 08/17/17 09:33 Platelet Estimate Appears normal 08/17/17 09:33 Clumped Platelets Not Reportable 08/17/17 09:33 Plt Clumps, EDTA Not Reportable 08/17/17 09:33 Large Platelets Not Reportable 08/17/17 09:33 Giant Platelets Not Reportable 08/17/17 09:33 Platelet Satelliting Not Reportable 08/17/17 09:33 Plt Morphology Comment Not Reportable 08/17/17 09:33 RBC Morphology Not Reportable 08/17/17 09:33 Dimorphic RBCs Not Reportable 08/17/17 09:33 Polychromasia Not Reportable 08/17/17 09:33 Hypochromasia 1+ 08/17/17 09:33 Poikilocytosis Not Reportable 08/17/17 09:33 Anisocytosis Not Reportable 08/17/17 09:33 Microcytosis Not Reportable 08/17/17 09:33 Macrocytosis Not Reportable 08/17/17 09:33 Spherocytes Not Reportable 08/17/17 09:33 Pappenheimer Bodies Not Reportable 08/17/17 09:33 Sickle Cells Not Reportable 08/17/17 09:33 Target Cells Not Reportable 08/17/17 09:33 Tear Drop Cells Not Reportable 08/17/17 09:33 Ovalocytes Not Reportable 08/17/17 09:33 Helmet Cells Not Reportable 08/17/17 09:33 Jackson-Burleson Bodies Not Reportable 08/17/17 09:33 Ellsworth Rings Not Reportable 08/17/17 09:33 Keiko Cells Not Reportable 08/17/17 09:33 Bite Cells Not Reportable 08/17/17 09:33 Crenated Cell Not Reportable 08/17/17 09:33 Elliptocytes Not Reportable 08/17/17 09:33 Acanthocytes (Spur) Not Reportable 08/17/17 09:33 Rouleaux Not Reportable 08/17/17 09:33 Hemoglobin C Crystals Not Reportable 08/17/17 09:33 Schistocytes Not Reportable 08/17/17 09:33 Malaria parasites Not Reportable 08/17/17 09:33 Alonso Bodies Not Reportable 08/17/17 09:33 Hem Pathologist Commnt No 08/17/17 09:33 Sodium 140 mmol/L (137-145) 08/18/17 05:15 Potassium 4.2 mmol/L (3.6-5.0) 08/18/17 05:15 Chloride 101.6 mmol/L (98-107) 08/18/17 05:15 Carbon Dioxide 28 mmol/L (22-30) 08/18/17 05:15 Anion Gap 15 mmol/L 08/18/17 05:15 BUN 24 mg/dL (7-17) H 08/18/17 05:15 Creatinine 1.1 mg/dL (0.7-1.2) 08/18/17 05:15 Estimated GFR 58 ml/min 08/18/17 05:15 BUN/Creatinine Ratio 22 % 08/18/17 05:15 Glucose 193 mg/dL (65-100) H 08/18/17 05:15 POC Glucose 134 (70-105) H 08/20/17 05:49 Calcium 8.5 mg/dL (8.4-10.2) 08/18/17 05:15 Total Bilirubin 0.50 mg/dL (0.1-1.2) 08/18/17 05:15 AST 10 units/L (5-40) 08/18/17 05:15 ALT 10 units/L (7-56) 08/18/17 05:15 Alkaline Phosphatase 83 units/L (35-129) 08/18/17 05:15 C-Reactive Protein 0.90 mg/dL (0.00-1.30) 08/17/17 09:33 Total Protein 6.8 g/dL (6.3-8.2) 08/18/17 05:15 Albumin 2.8 g/dL (3.9-5) L 08/18/17 05:15 Albumin/Globulin Ratio 0.7 % 08/18/17 05:15 <STEVE PERAZA - Last Filed: 08/20/17 17:07> Assessment and Plan Assessment and plan: I saw and evaluated the patient. I agree with the findings and the plan of care as documented in the Physician Mortgage Banker's~note, with the following corrections and additions. Patient states she wants to walk around. Discussed with Nursing staff. Patient appealed discharged. Will continue current treatment. Vascular at this point does not recommend any debridement in house. Hospitalist Physical - Constitutional Vitals: Temp Pulse Resp BP Pulse Ox 98.4 F 61 19 151/53 95 08/20/17 15:30 08/20/17 15:30 08/20/17 15:30 08/20/17 15:30 08/20/17 15:30 Results - Labs CBC & Chem 7: 08/18/17 05:15 08/18/17 05:15 Labs: Laboratory Last Values WBC 13.2 K/mm3 (4.5-11.0) H 08/18/17 05:15 RBC 4.57 M/mm3 (3.65-5.03) 08/18/17 05:15 Hgb 11.8 gm/dl (10.1-14.3) 08/18/17 05:15 Hct 36.8 % (30.3-42.9) 08/18/17 05:15 MCV 81 fl (79-97) 08/18/17 05:15 MCH 26 pg (28-32) L 08/18/17 05:15 MCHC 32 % (30-34) 08/18/17 05:15 RDW 15.1 % (13.2-15.2) 08/18/17 05:15 Plt Count 295 K/mm3 (140-440) 08/18/17 05:15 Lymph # Training And Development Rep 08/17/17 09:33 Add Manual Diff Complete 08/17/17 09:33 Total Counted 100 08/17/17 09:33 Seg Neuts % (Manual) 37.0 % (40.0-70.0) L 08/17/17 09:33 Band Neutrophils % 0 % 08/17/17 09:33 Lymphocytes % (Manual) 54.0 % (13.4-35.0) H 08/17/17 09:33 Reactive Lymphs % (Man) 0 % 08/17/17 09:33 Monocytes % (Manual) 7.0 % (0.0-7.3) 08/17/17 09:33 Eosinophils % (Manual) 2.0 % (0.0-4.3) 08/17/17 09:33 Basophils % (Manual) 0 % (0.0-1.8) 08/17/17 09:33 Metamyelocytes % 0 % 08/17/17 09:33 Myelocytes % 0 % 08/17/17 09:33 Promyelocytes % 0 % 08/17/17 09:33 Blast Cells % 0 % 08/17/17 09:33 Nucleated RBC % Not Reportable 08/17/17 09:33 Seg Neutrophils # Man 5.4 K/mm3 (1.8-7.7) 08/17/17 09:33 Band Neutrophils # 0.0 K/mm3 08/17/17 09:33 Lymphocytes # (Manual) 7.8 K/mm3 (1.2-5.4) H 08/17/17 09:33 Abs React Lymphs (Man) 0.0 K/mm3 08/17/17 09:33 Monocytes # (Manual) 1.0 K/mm3 (0.0-0.8) H 08/17/17 09:33 Eosinophils # (Manual) 0.3 K/mm3 (0.0-0.4) 08/17/17 09:33 Basophils # (Manual) 0.0 K/mm3 (0.0-0.1) 08/17/17 09:33 Metamyelocytes # 0.0 K/mm3 08/17/17 09:33 Myelocytes # 0.0 K/mm3 08/17/17 09:33 Promyelocytes # 0.0 K/mm3 08/17/17 09:33 Blast Cells # 0.0 K/mm3 08/17/17 09:33 WBC Morphology Not Reportable 08/17/17 09:33 Hypersegmented Neuts Not Reportable 08/17/17 09:33 Hyposegmented Neuts Not Reportable 08/17/17 09:33 Hypogranular Neuts Not Reportable 08/17/17 09:33 Smudge Cells Not Reportable 08/17/17 09:33 Toxic Granulation Not Reportable 08/17/17 09:33 Toxic Vacuolation Not Reportable 08/17/17 09:33 Dohle Bodies Not Reportable 08/17/17 09:33 Pelger-Huet Anomaly Not Reportable 08/17/17 09:33 Hailey Rods Not Reportable 08/17/17 09:33 Platelet Estimate Appears normal 08/17/17 09:33 Clumped Platelets Not Reportable 08/17/17 09:33 Plt Clumps, EDTA Not Reportable 08/17/17 09:33 Large Platelets Not Reportable 08/17/17 09:33 Giant Platelets Not Reportable 08/17/17 09:33 Platelet Satelliting Not Reportable 08/17/17 09:33 Plt Morphology Comment Not Reportable 08/17/17 09:33 RBC Morphology Not Reportable 08/17/17 09:33 Dimorphic RBCs Not Reportable 08/17/17 09:33 Polychromasia Not Reportable 08/17/17 09:33 Hypochromasia 1+ 08/17/17 09:33 Poikilocytosis Not Reportable 08/17/17 09:33 Anisocytosis Not Reportable 08/17/17 09:33 Microcytosis Not Reportable 08/17/17 09:33 Macrocytosis Not Reportable 08/17/17 09:33 Spherocytes Not Reportable 08/17/17 09:33 Pappenheimer Bodies Not Reportable 08/17/17 09:33 Sickle Cells Not Reportable 08/17/17 09:33 Target Cells Not Reportable 08/17/17 09:33 Tear Drop Cells Not Reportable 08/17/17 09:33 Ovalocytes Not Reportable 08/17/17 09:33 Helmet Cells Not Reportable 08/17/17 09:33 Jackson-Burleson Bodies Not Reportable 08/17/17 09:33 Ellsworth Rings Not Reportable 08/17/17 09:33 Keiko Cells Not Reportable 08/17/17 09:33 Bite Cells Not Reportable 08/17/17 09:33 Crenated Cell Not Reportable 08/17/17 09:33 Elliptocytes Not Reportable 08/17/17 09:33 Acanthocytes (Spur) Not Reportable 08/17/17 09:33 Rouleaux Not Reportable 08/17/17 09:33 Hemoglobin C Crystals Not Reportable 08/17/17 09:33 Schistocytes Not Reportable 08/17/17 09:33 Malaria parasites Not Reportable 08/17/17 09:33 Alonso Bodies Not Reportable 08/17/17 09:33 Hem Pathologist Commnt No 08/17/17 09:33 Sodium 140 mmol/L (137-145) 08/18/17 05:15 Potassium 4.2 mmol/L (3.6-5.0) 08/18/17 05:15 Chloride 101.6 mmol/L (98-107) 08/18/17 05:15 Carbon Dioxide 28 mmol/L (22-30) 08/18/17 05:15 Anion Gap 15 mmol/L 08/18/17 05:15 BUN 24 mg/dL (7-17) H 08/18/17 05:15 Creatinine 1.1 mg/dL (0.7-1.2) 08/18/17 05:15 Estimated GFR 58 ml/min 08/18/17 05:15 BUN/Creatinine Ratio 22 % 08/18/17 05:15 Glucose 193 mg/dL (65-100) H 08/18/17 05:15 POC Glucose 151 (70-105) H 08/20/17 15:37 Calcium 8.5 mg/dL (8.4-10.2) 08/18/17 05:15 Total Bilirubin 0.50 mg/dL (0.1-1.2) 08/18/17 05:15 AST 10 units/L (5-40) 08/18/17 05:15 ALT 10 units/L (7-56) 08/18/17 05:15 Alkaline Phosphatase 83 units/L (35-129) 08/18/17 05:15 C-Reactive Protein 0.90 mg/dL (0.00-1.30) 08/17/17 09:33 Total Protein 6.8 g/dL (6.3-8.2) 08/18/17 05:15 Albumin 2.8 g/dL (3.9-5) L 08/18/17 05:15 Albumin/Globulin Ratio 0.7 % 08/18/17 05:15
[2017-08-20] MEDS: PERCOCET 5/325 PO PRN (23:06)
[2017-08-20] MEDS: LEVEMIR SUB-Q SCH (23:08)
[2017-08-21] MEDS: SYNTHROID PO SCH ×2 (06:45)
[2017-08-21] MEDS: MERREM 1,000 MG in NACL 0.9% 20 ML IV SCH ×3 (06:45→22:29)
[2017-08-21] MEDS: LASIX PO SCH ×2 (06:45→17:42)
[2017-08-21] MEDS: PROVENTIL IH SCH (08:15)
[2017-08-21] MEDS: PULMICORT IH SCH ×2 (08:15→19:58)
[2017-08-21] MEDS: BROVANA NEBU IH SCH ×2 (08:16→19:58)
[2017-08-21] MEDS: NOVOLOG SUB-Q SCH ×6 (08:49→17:42)
[2017-08-21] MEDS: LYRICA PO SCH ×2 (10:27→22:30)
[2017-08-21] MEDS: TOPROL XL PO SCH (10:27)
--- NOTE | 2017-08-21 14:59 | Progress Note ---
Assessment and Plan Assessment and plan: 77 YO Female with HTN, DM, COPD, JAMES on CPAP, MO, Metabolic syndrome admitted directly from wound clinic for treatment of RLE cellulitis. Pt seen and evaluated upon arrival. Pt denies fever, chills, CP, Palpitations, NVD, syndope , prolonged travel/immobility, individual/family history of DVT/PE, unintentional weight loss or night sweats. Pt denies any complaints at time of exam. Cellulitis of right lower extremity ID following - Continue meropenem-pER ID Contact Isolation due to [employer]- wound culture dated 01/20 Patient to be discharged with PICC for continued meropenem for two weeks until 08/29/17 Vascular Surgeon Following recommends no need for further debridement, f/u with PVS for venous insufficiency management and venous ablation procedures Diabetes Mellitus with hyperglycemia ADA diet Sliding Scale insulin, accu check Obstructive sleep apnea CPAP at night, supplemental oxygen, nebs prn, incentive spirometry, early ambulation, HTN (hypertension) Hydralazine initiated PRN, continue home meds Monitor bp q shift Hypothyroidism Continue Levothyroxine Leukocytosis Likely from cellulitis Continue IV abs Morbid obesity Patient counselled on weight loss COPD Initiate Brovana and Pulmicort scheduled Albuterol PRN Mild to moderate malnutrition Order nutrition consult DVT prophylaxis SCDs Patient remains in the hospital secondary to appeal. Daughter was upset that she as not notified that the patient was in the hospital and wants to evaluate the facility for SNF prior to discharge. History Interval history: Patient seen and examined in no acute distress. Resting comfortably, was able to walk with rolling walker and happy about that. Denies any chest pain, nausea , vomiting or Diarrhea. Hospitalist Physical - Physical exam Narrative exam: General appearance: Present: no acute distress, obese - EENT Eyes: Present: PERRL, EOM intact ENT: hearing intact, clear oral mucosa, dentition normal - Neck Neck: Present: supple, normal ROM - Respiratory Respiratory effort: normal Respiratory: bilateral: wheezing - Cardiovascular Rhythm: regular Heart Sounds: Present: S1 & S2 - Extremities Extremities: no ischemia Extremity abnormal: edema, other Peripheral Pulses: within normal limits - Abdominal General gastrointestinal: soft, non-tender - Integumentary Integumentary: Present: warm (RLE non healing ulcer) - Psychiatric Psychiatric: appropriate mood/affect, intact judgment & insight, cooperative - Neurologic Neurologic: CNII-XII intact, moves all extremities - Constitutional Vitals: Temp Pulse Resp BP Pulse Ox 98.2 F 68 16 136/47 94 08/21/17 08:11 08/21/17 10:30 08/21/17 08:27 08/21/17 10:27 08/21/17 08:11 General appearance: Present: no acute distress, well-nourished Results - Labs CBC & Chem 7: 08/18/17 05:15 08/18/17 05:15 Labs: Laboratory Last Values WBC 13.2 K/mm3 (4.5-11.0) H 08/18/17 05:15 RBC 4.57 M/mm3 (3.65-5.03) 08/18/17 05:15 Hgb 11.8 gm/dl (10.1-14.3) 08/18/17 05:15 Hct 36.8 % (30.3-42.9) 08/18/17 05:15 MCV 81 fl (79-97) 08/18/17 05:15 MCH 26 pg (28-32) L 08/18/17 05:15 MCHC 32 % (30-34) 08/18/17 05:15 RDW 15.1 % (13.2-15.2) 08/18/17 05:15 Plt Count 295 K/mm3 (140-440) 08/18/17 05:15 Lymph # Clerical Office Worker 08/17/17 09:33 Add Manual Diff Complete 08/17/17 09:33 Total Counted 100 08/17/17 09:33 Seg Neuts % (Manual) 37.0 % (40.0-70.0) L 08/17/17 09:33 Band Neutrophils % 0 % 08/17/17 09:33 Lymphocytes % (Manual) 54.0 % (13.4-35.0) H 08/17/17 09:33 Reactive Lymphs % (Man) 0 % 08/17/17 09:33 Monocytes % (Manual) 7.0 % (0.0-7.3) 08/17/17 09:33 Eosinophils % (Manual) 2.0 % (0.0-4.3) 08/17/17 09:33 Basophils % (Manual) 0 % (0.0-1.8) 08/17/17 09:33 Metamyelocytes % 0 % 08/17/17 09:33 Myelocytes % 0 % 08/17/17 09:33 Promyelocytes % 0 % 08/17/17 09:33 Blast Cells % 0 % 08/17/17 09:33 Nucleated RBC % Not Reportable 08/17/17 09:33 Seg Neutrophils # Man 5.4 K/mm3 (1.8-7.7) 08/17/17 09:33 Band Neutrophils # 0.0 K/mm3 08/17/17 09:33 Lymphocytes # (Manual) 7.8 K/mm3 (1.2-5.4) H 08/17/17 09:33 Abs React Lymphs (Man) 0.0 K/mm3 08/17/17 09:33 Monocytes # (Manual) 1.0 K/mm3 (0.0-0.8) H 08/17/17 09:33 Eosinophils # (Manual) 0.3 K/mm3 (0.0-0.4) 08/17/17 09:33 Basophils # (Manual) 0.0 K/mm3 (0.0-0.1) 08/17/17 09:33 Metamyelocytes # 0.0 K/mm3 08/17/17 09:33 Myelocytes # 0.0 K/mm3 08/17/17 09:33 Promyelocytes # 0.0 K/mm3 08/17/17 09:33 Blast Cells # 0.0 K/mm3 08/17/17 09:33 WBC Morphology Not Reportable 08/17/17 09:33 Hypersegmented Neuts Not Reportable 08/17/17 09:33 Hyposegmented Neuts Not Reportable 08/17/17 09:33 Hypogranular Neuts Not Reportable 08/17/17 09:33 Smudge Cells Not Reportable 08/17/17 09:33 Toxic Granulation Not Reportable 08/17/17 09:33 Toxic Vacuolation Not Reportable 08/17/17 09:33 Dohle Bodies Not Reportable 08/17/17 09:33 Pelger-Huet Anomaly Not Reportable 08/17/17 09:33 Hailey Rods Not Reportable 08/17/17 09:33 Platelet Estimate Appears normal 08/17/17 09:33 Clumped Platelets Not Reportable 08/17/17 09:33 Plt Clumps, EDTA Not Reportable 08/17/17 09:33 Large Platelets Not Reportable 08/17/17 09:33 Giant Platelets Not Reportable 08/17/17 09:33 Platelet Satelliting Not Reportable 08/17/17 09:33 Plt Morphology Comment Not Reportable 08/17/17 09:33 RBC Morphology Not Reportable 08/17/17 09:33 Dimorphic RBCs Not Reportable 08/17/17 09:33 Polychromasia Not Reportable 08/17/17 09:33 Hypochromasia 1+ 08/17/17 09:33 Poikilocytosis Not Reportable 08/17/17 09:33 Anisocytosis Not Reportable 08/17/17 09:33 Microcytosis Not Reportable 08/17/17 09:33 Macrocytosis Not Reportable 08/17/17 09:33 Spherocytes Not Reportable 08/17/17 09:33 Pappenheimer Bodies Not Reportable 08/17/17 09:33 Sickle Cells Not Reportable 08/17/17 09:33 Target Cells Not Reportable 08/17/17 09:33 Tear Drop Cells Not Reportable 08/17/17 09:33 Ovalocytes Not Reportable 08/17/17 09:33 Helmet Cells Not Reportable 08/17/17 09:33 [place] Bodies Not Reportable 08/17/17 09:33 [place] Rings Not Reportable 08/17/17 09:33 [place] Cells Not Reportable 08/17/17 09:33 Bite Cells Not Reportable 08/17/17 09:33 Crenated Cell Not Reportable 08/17/17 09:33 Elliptocytes Not Reportable 08/17/17 09:33 Acanthocytes (Spur) Not Reportable 08/17/17 09:33 Rouleaux Not Reportable 08/17/17 09:33 Hemoglobin C Crystals Not Reportable 08/17/17 09:33 Schistocytes Not Reportable 08/17/17 09:33 Malaria parasites Not Reportable 08/17/17 09:33 Alonso Bodies Not Reportable 08/17/17 09:33 Hem Pathologist Commnt No 08/17/17 09:33 Sodium 140 mmol/L (137-145) 08/18/17 05:15 Potassium 4.2 mmol/L (3.6-5.0) 08/18/17 05:15 Chloride 101.6 mmol/L (98-107) 08/18/17 05:15 Carbon Dioxide 28 mmol/L (22-30) 08/18/17 05:15 Anion Gap 15 mmol/L 08/18/17 05:15 BUN 24 mg/dL (7-17) H 08/18/17 05:15 Creatinine 1.1 mg/dL (0.7-1.2) 08/18/17 05:15 Estimated GFR 58 ml/min 08/18/17 05:15 BUN/Creatinine Ratio 22 % 08/18/17 05:15 Glucose 193 mg/dL (65-100) H 08/18/17 05:15 POC Glucose 181 (70-105) H 08/21/17 12:30 Calcium 8.5 mg/dL (8.4-10.2) 08/18/17 05:15 Total Bilirubin 0.50 mg/dL (0.1-1.2) 08/18/17 05:15 AST 10 units/L (5-40) 08/18/17 05:15 ALT 10 units/L (7-56) 08/18/17 05:15 Alkaline Phosphatase 83 units/L (35-129) 08/18/17 05:15 C-Reactive Protein 0.90 mg/dL (0.00-1.30) 08/17/17 09:33 Total Protein 6.8 g/dL (6.3-8.2) 08/18/17 05:15 Albumin 2.8 g/dL (3.9-5) L 08/18/17 05:15 Albumin/Globulin Ratio 0.7 % 08/18/17 05:15
[2017-08-21] MEDS: LEVEMIR SUB-Q SCH (22:45)
[2017-08-22] MEDS: PROVENTIL IH SCH ×3 (01:46→19:16)
[2017-08-22] MEDS: NOVOLOG SUB-Q SCH ×8 (01:50→22:39)
[2017-08-22 06:03] LABS: Hematocrit 36.3 % (30.3-42.9); Hemoglobin 11.5 gm/dl (10.1-14.3); Mean Corpuscular HGB Conc 32 % (30-34); Mean Corpuscular Volume 81 fl (79-97); Platelet Count 253 K/mm3 (140-440); Red Blood Count 4.46 M/mm3 (3.65-5.03); Red Cell Distribution Width 15.5 % (13.2-15.2); White Blood Count 12.4 K/mm3 (4.5-11.0)
[2017-08-22 06:05] LABS: Mean Corpuscular Hemoglobin 26 pg (28-32)
[2017-08-22] MEDS: SYNTHROID PO SCH ×4 (06:21→06:28)
[2017-08-22] MEDS: MERREM 1,000 MG in NACL 0.9% 20 ML IV SCH ×3 (06:25→22:50)
[2017-08-22] MEDS: LASIX PO SCH ×2 (06:26→18:05)
[2017-08-22] MEDS: PULMICORT IH SCH ×2 (08:40→19:16)
[2017-08-22] MEDS: BROVANA NEBU IH SCH ×2 (08:40→19:16)
[2017-08-22] MEDS: LYRICA PO SCH ×2 (09:29→22:38)
[2017-08-22] MEDS: TOPROL XL PO SCH (09:32)
--- NOTE | 2017-08-22 16:05 | Progress Note ---
Assessment and Plan Assessment and plan: 77 YO Female with HTN, DM, COPD, JAMES on CPAP, MO, Metabolic syndrome admitted directly from wound clinic for treatment of RLE cellulitis. Cellulitis of right lower extremity - Patient continue meropenem for a total of 2 weeks, 08/29/17 - Her daughter is out of town and will be back on Wednesday, discharge the patient on Wednesday - Vascular Surgeon Following recommends no need for further debridement, f/u with [facility] for venous insufficiency management and venous ablation procedures Diabetes Mellitus with hyperglycemia - ADA diet - Sliding Scale insulin, accu check Obstructive sleep apnea - CPAP at night, supplemental oxygen, nebs prn, incentive spirometry, early ambulation, HTN (hypertension) - Hydralazine initiated PRN, continue home meds - Monitor bp q shift Hypothyroidism - Continue Levothyroxine Leukocytosis - Likely from cellulitis - Continue IV meropenem Morbid obesity - Patient counselled on weight loss COPD - Initiate Brovana and Pulmicort scheduled - Albuterol PRN Mild to moderate malnutrition - Order nutrition consult DVT prophylaxis - SCDs Disposition - Continue inpatient care History Interval history: Patient was seen and evaluated this morning, mild pain in the right lower extremity. Hospitalist Physical - Physical exam Narrative exam: Not in cardiopulmonary distress. The patient is obese. Vital signs as documented. Head exam is unremarkable. No scleral icterus . Neck is without jugular venous distension, thyromegaly, or carotid bruits. Lungs are clear to auscultation. Cardiac exam reveals regular rate and Rhythm. First and second heart sounds normal. No murmurs, rubs or gallops. Abdominal exam reveals normal bowel sounds, no masses, no organomegaly and no aortic enlargement. Extremities are nonedematous and both femoral and pedal pulses are normal. AUTO DESIGN CHECKER: Alert and oriented 3. No focal weakness. - Constitutional Vitals: Temp Pulse Resp BP Pulse Ox 98.8 F 66 18 153/59 96 08/22/17 15:41 08/22/17 15:41 08/22/17 15:41 08/22/17 15:41 08/22/17 15:41 General appearance: Present: no acute distress, well-nourished Results - Labs CBC & Chem 7: 08/22/17 Unknown 08/18/17 05:15 Labs: Laboratory Last Values WBC 12.4 K/mm3 (4.5-11.0) H 08/22/17 Unknown RBC 4.46 M/mm3 (3.65-5.03) 08/22/17 Unknown Hgb 11.5 gm/dl (10.1-14.3) 08/22/17 Unknown Hct 36.3 % (30.3-42.9) 08/22/17 Unknown MCV 81 fl (79-97) 08/22/17 Unknown MCH 26 pg (28-32) L 08/22/17 Unknown MCHC 32 % (30-34) 08/22/17 Unknown RDW 15.5 % (13.2-15.2) H 08/22/17 Unknown Plt Count 253 K/mm3 (140-440) 08/22/17 Unknown Lymph # Instructional Design Specialist 08/17/17 09:33 Add Manual Diff Complete 08/17/17 09:33 Total Counted 100 08/17/17 09:33 Seg Neuts % (Manual) 37.0 % (40.0-70.0) L 08/17/17 09:33 Band Neutrophils % 0 % 08/17/17 09:33 Lymphocytes % (Manual) 54.0 % (13.4-35.0) H 08/17/17 09:33 Reactive Lymphs % (Man) 0 % 08/17/17 09:33 Monocytes % (Manual) 7.0 % (0.0-7.3) 08/17/17 09:33 Eosinophils % (Manual) 2.0 % (0.0-4.3) 08/17/17 09:33 Basophils % (Manual) 0 % (0.0-1.8) 08/17/17 09:33 Metamyelocytes % 0 % 08/17/17 09:33 Myelocytes % 0 % 08/17/17 09:33 Promyelocytes % 0 % 08/17/17 09:33 Blast Cells % 0 % 08/17/17 09:33 Nucleated RBC % Not Reportable 08/17/17 09:33 Seg Neutrophils # Man 5.4 K/mm3 (1.8-7.7) 08/17/17 09:33 Band Neutrophils # 0.0 K/mm3 08/17/17 09:33 Lymphocytes # (Manual) 7.8 K/mm3 (1.2-5.4) H 08/17/17 09:33 Abs React Lymphs (Man) 0.0 K/mm3 08/17/17 09:33 Monocytes # (Manual) 1.0 K/mm3 (0.0-0.8) H 08/17/17 09:33 Eosinophils # (Manual) 0.3 K/mm3 (0.0-0.4) 08/17/17 09:33 Basophils # (Manual) 0.0 K/mm3 (0.0-0.1) 08/17/17 09:33 Metamyelocytes # 0.0 K/mm3 08/17/17 09:33 Myelocytes # 0.0 K/mm3 08/17/17 09:33 Promyelocytes # 0.0 K/mm3 08/17/17 09:33 Blast Cells # 0.0 K/mm3 08/17/17 09:33 WBC Morphology Not Reportable 08/17/17 09:33 Hypersegmented Neuts Not Reportable 08/17/17 09:33 Hyposegmented Neuts Not Reportable 08/17/17 09:33 Hypogranular Neuts Not Reportable 08/17/17 09:33 Smudge Cells Not Reportable 08/17/17 09:33 Toxic Granulation Not Reportable 08/17/17 09:33 Toxic Vacuolation Not Reportable 08/17/17 09:33 Dohle Bodies Not Reportable 08/17/17 09:33 Pelger-Huet Anomaly Not Reportable 08/17/17 09:33 Hailey Rods Not Reportable 08/17/17 09:33 Platelet Estimate Appears normal 08/17/17 09:33 Clumped Platelets Not Reportable 08/17/17 09:33 Plt Clumps, EDTA Not Reportable 08/17/17 09:33 Large Platelets Not Reportable 08/17/17 09:33 Giant Platelets Not Reportable 08/17/17 09:33 Platelet Satelliting Not Reportable 08/17/17 09:33 Plt Morphology Comment Not Reportable 08/17/17 09:33 RBC Morphology Not Reportable 08/17/17 09:33 Dimorphic RBCs Not Reportable 08/17/17 09:33 Polychromasia Not Reportable 08/17/17 09:33 Hypochromasia 1+ 08/17/17 09:33 Poikilocytosis Not Reportable 08/17/17 09:33 Anisocytosis Not Reportable 08/17/17 09:33 Microcytosis Not Reportable 08/17/17 09:33 Macrocytosis Not Reportable 08/17/17 09:33 Spherocytes Not Reportable 08/17/17 09:33 Pappenheimer Bodies Not Reportable 08/17/17 09:33 Sickle Cells Not Reportable 08/17/17 09:33 Target Cells Not Reportable 08/17/17 09:33 Tear Drop Cells Not Reportable 08/17/17 09:33 Ovalocytes Not Reportable 08/17/17 09:33 Helmet Cells Not Reportable 08/17/17 09:33 [place] Bodies Not Reportable 08/17/17 09:33 [place] Rings Not Reportable 08/17/17 09:33 [place] Cells Not Reportable 08/17/17 09:33 Bite Cells Not Reportable 08/17/17 09:33 Crenated Cell Not Reportable 08/17/17 09:33 Elliptocytes Not Reportable 08/17/17 09:33 Acanthocytes (Spur) Not Reportable 08/17/17 09:33 Rouleaux Not Reportable 08/17/17 09:33 Hemoglobin C Crystals Not Reportable 08/17/17 09:33 Schistocytes Not Reportable 08/17/17 09:33 Malaria parasites Not Reportable 08/17/17 09:33 Alonso Bodies Not Reportable 08/17/17 09:33 Hem Pathologist Commnt No 08/17/17 09:33 Sodium 140 mmol/L (137-145) 08/18/17 05:15 Potassium 4.2 mmol/L (3.6-5.0) 08/18/17 05:15 Chloride 101.6 mmol/L (98-107) 08/18/17 05:15 Carbon Dioxide 28 mmol/L (22-30) 08/18/17 05:15 Anion Gap 15 mmol/L 08/18/17 05:15 BUN 24 mg/dL (7-17) H 08/18/17 05:15 Creatinine 1.1 mg/dL (0.7-1.2) 08/18/17 05:15 Estimated GFR 58 ml/min 08/18/17 05:15 BUN/Creatinine Ratio 22 % 08/18/17 05:15 Glucose 193 mg/dL (65-100) H 08/18/17 05:15 POC Glucose 295 (70-105) H 08/22/17 06:29 Calcium 8.5 mg/dL (8.4-10.2) 08/18/17 05:15 Total Bilirubin 0.50 mg/dL (0.1-1.2) 08/18/17 05:15 AST 10 units/L (5-40) 08/18/17 05:15 ALT 10 units/L (7-56) 08/18/17 05:15 Alkaline Phosphatase 83 units/L (35-129) 08/18/17 05:15 C-Reactive Protein 0.90 mg/dL (0.00-1.30) 08/17/17 09:33 Total Protein 6.8 g/dL (6.3-8.2) 08/18/17 05:15 Albumin 2.8 g/dL (3.9-5) L 08/18/17 05:15 Albumin/Globulin Ratio 0.7 % 08/18/17 05:15
[2017-08-22] MEDS: LEVEMIR SUB-Q SCH (22:38)
[2017-08-23] MEDS: SYNTHROID PO SCH ×2 (06:14→06:15)
[2017-08-23] MEDS: LASIX PO SCH ×2 (06:15→18:31)
[2017-08-23] MEDS: MERREM 1,000 MG in NACL 0.9% 20 ML IV SCH ×3 (06:16→22:59)
[2017-08-23] MEDS: NOVOLOG SUB-Q SCH ×7 (09:17→22:58)
[2017-08-23] MEDS: BROVANA NEBU IH SCH ×2 (09:52→19:20)
[2017-08-23] MEDS: PROVENTIL IH SCH ×3 (09:52→19:32)
[2017-08-23] MEDS: PULMICORT IH SCH ×2 (09:52→19:21)
--- NOTE | 2017-08-23 10:18 | Progress Note ---
<HALINA MAC - Last Filed: 08/23/17 11:46> Assessment and Plan Assessment and plan: 77 YO Female with HTN, DM, COPD, JAMES on CPAP, MO, Metabolic syndrome admitted directly from wound clinic for treatment of RLE cellulitis. Pt seen and evaluated upon arrival. Pt denies fever, chills, CP, Palpitations, NVD, syndope , prolonged travel/immobility, individual/family history of DVT/PE, unintentional weight loss or night sweats. Pt denies any complaints at time of exam. Cellulitis of right lower extremity ID following - Continue meropenem Contact Isolation due to [employer]- wound culture dated 01/20 Patient to be discharged with PICC for continued meropenem for two weeks until 08/29/17 Vascular Surgeon Following recommends no need for further debridement, f/u with [facility]S for venous insufficiency management and venous ablation procedures Diabetes Mellitus with hyperglycemia ADA diet Sliding Scale insulin, accu check Obstructive sleep apnea CPAP at night, supplemental oxygen, nebs prn, incentive spirometry, early ambulation, HTN (hypertension) Controlled on Hydralazine initiated PRN, and home meds Monitor bp q shift Hypothyroidism Continue Levothyroxine Leukocytosis Likely from cellulitis, improving Continue IV abs Morbid obesity Patient counselled on weight loss COPD Continue Brovana and Pulmicort scheduled Albuterol PRN Mild to moderate malnutrition Order nutrition consult DVT prophylaxis SCDs History Interval history: Patient awake and alert receiving breathing treatment. Mild R leg pain, she hardly feels any pain at all. Denies SOB, CP, NV. Hospitalist Physical - Constitutional Vitals: Temp Pulse Resp BP Pulse Ox 98.4 F 57 L 19 126/56 92 08/23/17 07:42 08/23/17 07:42 08/23/17 07:42 08/23/17 07:42 08/23/17 07:42 General appearance: Present: no acute distress, well-nourished - EENT Eyes: Present: PERRL, EOM intact ENT: hearing intact, clear oral mucosa - Neck Neck: Present: supple, normal ROM - Respiratory Respiratory effort: normal Respiratory: bilateral: CTA - Cardiovascular Rhythm: regular Heart Sounds: Present: S1 & S2 - Extremities Extremities: no ischemia Extremity abnormal: edema Peripheral Pulses: within normal limits - Abdominal General gastrointestinal: soft, non-tender - Integumentary Integumentary: Present: clear, warm - Psychiatric Psychiatric: appropriate mood/affect, cooperative - Neurologic Neurologic: CNII-XII intact, moves all extremities - Allied Health Allied health notes reviewed: nursing Results - Labs CBC & Chem 7: 08/22/17 Unknown 08/18/17 05:15 Labs: Laboratory Last Values WBC 12.4 K/mm3 (4.5-11.0) H 08/22/17 Unknown RBC 4.46 M/mm3 (3.65-5.03) 08/22/17 Unknown Hgb 11.5 gm/dl (10.1-14.3) 08/22/17 Unknown Hct 36.3 % (30.3-42.9) 08/22/17 Unknown MCV 81 fl (79-97) 08/22/17 Unknown MCH 26 pg (28-32) L 08/22/17 Unknown MCHC 32 % (30-34) 08/22/17 Unknown RDW 15.5 % (13.2-15.2) H 08/22/17 Unknown Plt Count 253 K/mm3 (140-440) 08/22/17 Unknown Lymph # Senior Reservations Agent 08/17/17 09:33 Add Manual Diff Complete 08/17/17 09:33 Total Counted 100 08/17/17 09:33 Seg Neuts % (Manual) 37.0 % (40.0-70.0) L 08/17/17 09:33 Band Neutrophils % 0 % 08/17/17 09:33 Lymphocytes % (Manual) 54.0 % (13.4-35.0) H 08/17/17 09:33 Reactive Lymphs % (Man) 0 % 08/17/17 09:33 Monocytes % (Manual) 7.0 % (0.0-7.3) 08/17/17 09:33 Eosinophils % (Manual) 2.0 % (0.0-4.3) 08/17/17 09:33 Basophils % (Manual) 0 % (0.0-1.8) 08/17/17 09:33 Metamyelocytes % 0 % 08/17/17 09:33 Myelocytes % 0 % 08/17/17 09:33 Promyelocytes % 0 % 08/17/17 09:33 Blast Cells % 0 % 08/17/17 09:33 Nucleated RBC % Not Reportable 08/17/17 09:33 Seg Neutrophils # Man 5.4 K/mm3 (1.8-7.7) 08/17/17 09:33 Band Neutrophils # 0.0 K/mm3 08/17/17 09:33 Lymphocytes # (Manual) 7.8 K/mm3 (1.2-5.4) H 08/17/17 09:33 Abs React Lymphs (Man) 0.0 K/mm3 08/17/17 09:33 Monocytes # (Manual) 1.0 K/mm3 (0.0-0.8) H 08/17/17 09:33 Eosinophils # (Manual) 0.3 K/mm3 (0.0-0.4) 08/17/17 09:33 Basophils # (Manual) 0.0 K/mm3 (0.0-0.1) 08/17/17 09:33 Metamyelocytes # 0.0 K/mm3 08/17/17 09:33 Myelocytes # 0.0 K/mm3 08/17/17 09:33 Promyelocytes # 0.0 K/mm3 08/17/17 09:33 Blast Cells # 0.0 K/mm3 08/17/17 09:33 WBC Morphology Not Reportable 08/17/17 09:33 Hypersegmented Neuts Not Reportable 08/17/17 09:33 Hyposegmented Neuts Not Reportable 08/17/17 09:33 Hypogranular Neuts Not Reportable 08/17/17 09:33 Smudge Cells Not Reportable 08/17/17 09:33 Toxic Granulation Not Reportable 08/17/17 09:33 Toxic Vacuolation Not Reportable 08/17/17 09:33 Dohle Bodies Not Reportable 08/17/17 09:33 Pelger-Huet Anomaly Not Reportable 08/17/17 09:33 Haiely Rods Not Reportable 08/17/17 09:33 Platelet Estimate Appears normal 08/17/17 09:33 Clumped Platelets Not Reportable 08/17/17 09:33 Plt Clumps, EDTA Not Reportable 08/17/17 09:33 Large Platelets Not Reportable 08/17/17 09:33 Giant Platelets Not Reportable 08/17/17 09:33 Platelet Satelliting Not Reportable 08/17/17 09:33 Plt Morphology Comment Not Reportable 08/17/17 09:33 RBC Morphology Not Reportable 08/17/17 09:33 Dimorphic RBCs Not Reportable 08/17/17 09:33 Polychromasia Not Reportable 08/17/17 09:33 Hypochromasia 1+ 08/17/17 09:33 Poikilocytosis Not Reportable 08/17/17 09:33 Anisocytosis Not Reportable 08/17/17 09:33 Microcytosis Not Reportable 08/17/17 09:33 Macrocytosis Not Reportable 08/17/17 09:33 Spherocytes Not Reportable 08/17/17 09:33 Pappenheimer Bodies Not Reportable 08/17/17 09:33 Sickle Cells Not Reportable 08/17/17 09:33 Target Cells Not Reportable 08/17/17 09:33 Tear Drop Cells Not Reportable 08/17/17 09:33 Ovalocytes Not Reportable 08/17/17 09:33 Helmet Cells Not Reportable 08/17/17 09:33 Jackson-Cane [place] Bodies Not Reportable 08/17/17 09:33 [place] Rings Not Reportable 08/17/17 09:33 Dubois Cells Not Reportable 08/17/17 09:33 Bite Cells Not Reportable 08/17/17 09:33 Crenated Cell Not Reportable 08/17/17 09:33 Elliptocytes Not Reportable 08/17/17 09:33 Acanthocytes (Spur) Not Reportable 08/17/17 09:33 Rouleaux Not Reportable 08/17/17 09:33 Hemoglobin C Crystals Not Reportable 08/17/17 09:33 Schistocytes Not Reportable 08/17/17 09:33 Malaria parasites Not Reportable 08/17/17 09:33 Alonso Bodies Not Reportable 08/17/17 09:33 Hem Pathologist Commnt No 08/17/17 09:33 Sodium 140 mmol/L (137-145) 08/18/17 05:15 Potassium 4.2 mmol/L (3.6-5.0) 08/18/17 05:15 Chloride 101.6 mmol/L (98-107) 08/18/17 05:15 Carbon Dioxide 28 mmol/L (22-30) 08/18/17 05:15 Anion Gap 15 mmol/L 08/18/17 05:15 BUN 24 mg/dL (7-17) H 08/18/17 05:15 Creatinine 1.1 mg/dL (0.7-1.2) 08/18/17 05:15 Estimated GFR 58 ml/min 08/18/17 05:15 BUN/Creatinine Ratio 22 % 08/18/17 05:15 Glucose 193 mg/dL (65-100) H 08/18/17 05:15 POC Glucose 192 (70-105) H 08/23/17 06:48 Calcium 8.5 mg/dL (8.4-10.2) 08/18/17 05:15 Total Bilirubin 0.50 mg/dL (0.1-1.2) 08/18/17 05:15 AST 10 units/L (5-40) 08/18/17 05:15 ALT 10 units/L (7-56) 08/18/17 05:15 Alkaline Phosphatase 83 units/L (35-129) 08/18/17 05:15 C-Reactive Protein 0.90 mg/dL (0.00-1.30) 08/17/17 09:33 Total Protein 6.8 g/dL (6.3-8.2) 08/18/17 05:15 Albumin 2.8 g/dL (3.9-5) L 08/18/17 05:15 Albumin/Globulin Ratio 0.7 % 08/18/17 05:15 <MERCED PULIDO M - Last Filed: 08/24/17 09:24> Assessment and Plan Assessment and plan: I saw and evaluated the patient. I agree with the findings and the plan of care as documented in the Nurse Practitioner's progress note. Hospitalist Physical - Constitutional Vitals: Temp Pulse Resp BP Pulse Ox 97.6 F 69 18 139/49 96 08/24/17 07:22 08/24/17 09:01 08/24/17 09:01 08/24/17 07:22 08/24/17 07:22 Results - Labs CBC & Chem 7: 08/22/17 Unknown 08/18/17 05:15 Labs: Laboratory Last Values WBC 12.4 K/mm3 (4.5-11.0) H 08/22/17 Unknown RBC 4.46 M/mm3 (3.65-5.03) 08/22/17 Unknown Hgb 11.5 gm/dl (10.1-14.3) 08/22/17 Unknown Hct 36.3 % (30.3-42.9) 08/22/17 Unknown MCV 81 fl (79-97) 08/22/17 Unknown MCH 26 pg (28-32) L 08/22/17 Unknown MCHC 32 % (30-34) 08/22/17 Unknown RDW 15.5 % (13.2-15.2) H 08/22/17 Unknown Plt Count 253 K/mm3 (140-440) 08/22/17 Unknown Lymph # Senior Reservations Agent 08/17/17 09:33 Add Manual Diff Complete 08/17/17 09:33 Total Counted 100 08/17/17 09:33 Seg Neuts % (Manual) 37.0 % (40.0-70.0) L 08/17/17 09:33 Band Neutrophils % 0 % 08/17/17 09:33 Lymphocytes % (Manual) 54.0 % (13.4-35.0) H 08/17/17 09:33 Reactive Lymphs % (Man) 0 % 08/17/17 09:33 Monocytes % (Manual) 7.0 % (0.0-7.3) 08/17/17 09:33 Eosinophils % (Manual) 2.0 % (0.0-4.3) 08/17/17 09:33 Basophils % (Manual) 0 % (0.0-1.8) 08/17/17 09:33 Metamyelocytes % 0 % 08/17/17 09:33 Myelocytes % 0 % 08/17/17 09:33 Promyelocytes % 0 % 08/17/17 09:33 Blast Cells % 0 % 08/17/17 09:33 Nucleated RBC % Not Reportable 08/17/17 09:33 Seg Neutrophils # Man 5.4 K/mm3 (1.8-7.7) 08/17/17 09:33 Band Neutrophils # 0.0 K/mm3 08/17/17 09:33 Lymphocytes # (Manual) 7.8 K/mm3 (1.2-5.4) H 08/17/17 09:33 Abs React Lymphs (Man) 0.0 K/mm3 08/17/17 09:33 Monocytes # (Manual) 1.0 K/mm3 (0.0-0.8) H 08/17/17 09:33 Eosinophils # (Manual) 0.3 K/mm3 (0.0-0.4) 08/17/17 09:33 Basophils # (Manual) 0.0 K/mm3 (0.0-0.1) 08/17/17 09:33 Metamyelocytes # 0.0 K/mm3 08/17/17 09:33 Myelocytes # 0.0 K/mm3 08/17/17 09:33 Promyelocytes # 0.0 K/mm3 08/17/17 09:33 Blast Cells # 0.0 K/mm3 08/17/17 09:33 WBC Morphology Not Reportable 08/17/17 09:33 Hypersegmented Neuts Not Reportable 08/17/17 09:33 Hyposegmented Neuts Not Reportable 08/17/17 09:33 Hypogranular Neuts Not Reportable 08/17/17 09:33 Smudge Cells Not Reportable 08/17/17 09:33 Toxic Granulation Not Reportable 08/17/17 09:33 Toxic Vacuolation Not Reportable 08/17/17 09:33 Dohle Bodies Not Reportable 08/17/17 09:33 Pelger-Huet Anomaly Not Reportable 08/17/17 09:33 Hailey Rods Not Reportable 08/17/17 09:33 Platelet Estimate Appears normal 08/17/17 09:33 Clumped Platelets Not Reportable 08/17/17 09:33 Plt Clumps, EDTA Not Reportable 08/17/17 09:33 Large Platelets Not Reportable 08/17/17 09:33 Giant Platelets Not Reportable 08/17/17 09:33 Platelet Satelliting Not Reportable 08/17/17 09:33 Plt Morphology Comment Not Reportable 08/17/17 09:33 RBC Morphology Not Reportable 08/17/17 09:33 Dimorphic RBCs Not Reportable 08/17/17 09:33 Polychromasia Not Reportable 08/17/17 09:33 Hypochromasia 1+ 08/17/17 09:33 Poikilocytosis Not Reportable 08/17/17 09:33 Anisocytosis Not Reportable 08/17/17 09:33 Microcytosis Not Reportable 08/17/17 09:33 Macrocytosis Not Reportable 08/17/17 09:33 Spherocytes Not Reportable 08/17/17 09:33 Pappenheimer Bodies Not Reportable 08/17/17 09:33 Sickle Cells Not Reportable 08/17/17 09:33 Target Cells Not Reportable 08/17/17 09:33 Tear Drop Cells Not Reportable 08/17/17 09:33 Ovalocytes Not Reportable 08/17/17 09:33 Helmet Cells Not Reportable 08/17/17 09:33 Jackson-Cane [place] Bodies Not Reportable 08/17/17 09:33 [place] Rings Not Reportable 08/17/17 09:33 Dubois Cells Not Reportable 08/17/17 09:33 Bite Cells Not Reportable 08/17/17 09:33 Crenated Cell Not Reportable 08/17/17 09:33 Elliptocytes Not Reportable 08/17/17 09:33 Acanthocytes (Spur) Not Reportable 08/17/17 09:33 Rouleaux Not Reportable 08/17/17 09:33 Hemoglobin C Crystals Not Reportable 08/17/17 09:33 Schistocytes Not Reportable 08/17/17 09:33 Malaria parasites Not Reportable 08/17/17 09:33 Alonso Bodies Not Reportable 08/17/17 09:33 Hem Pathologist Commnt No 08/17/17 09:33 Sodium 140 mmol/L (137-145) 08/18/17 05:15 Potassium 4.2 mmol/L (3.6-5.0) 08/18/17 05:15 Chloride 101.6 mmol/L (98-107) 08/18/17 05:15 Carbon Dioxide 28 mmol/L (22-30) 08/18/17 05:15 Anion Gap 15 mmol/L 08/18/17 05:15 BUN 24 mg/dL (7-17) H 08/18/17 05:15 Creatinine 1.1 mg/dL (0.7-1.2) 08/18/17 05:15 Estimated GFR 58 ml/min 08/18/17 05:15 BUN/Creatinine Ratio 22 % 08/18/17 05:15 Glucose 193 mg/dL (65-100) H 08/18/17 05:15 POC Glucose 221 (70-105) H 08/24/17 05:31 Calcium 8.5 mg/dL (8.4-10.2) 08/18/17 05:15 Total Bilirubin 0.50 mg/dL (0.1-1.2) 08/18/17 05:15 AST 10 units/L (5-40) 08/18/17 05:15 ALT 10 units/L (7-56) 08/18/17 05:15 Alkaline Phosphatase 83 units/L (35-129) 08/18/17 05:15 C-Reactive Protein 0.90 mg/dL (0.00-1.30) 08/17/17 09:33 Total Protein 6.8 g/dL (6.3-8.2) 08/18/17 05:15 Albumin 2.8 g/dL (3.9-5) L 08/18/17 05:15 Albumin/Globulin Ratio 0.7 % 08/18/17 05:15
[2017-08-23] MEDS: LYRICA PO SCH ×2 (10:56→21:42)
[2017-08-23] MEDS: TOPROL XL PO SCH (10:58)
[2017-08-23] MEDS: LEVEMIR SUB-Q SCH (22:57)
[2017-08-24] MEDS: MERREM 1,000 MG in NACL 0.9% 20 ML IV SCH (06:37)
[2017-08-24] MEDS: SYNTHROID PO SCH ×2 (06:38)
[2017-08-24] MEDS: LASIX PO SCH (06:39)
[2017-08-24 08:27] VITALS: BP 139/49
[2017-08-24] MEDS: PROVENTIL IH SCH (09:00)
[2017-08-24] MEDS: PULMICORT IH SCH (09:00)
[2017-08-24] MEDS: NOVOLOG SUB-Q SCH ×4 (09:00→13:59)
[2017-08-24] MEDS: BROVANA NEBU IH SCH (09:00)
[2017-08-24] MEDS: LYRICA PO SCH (11:32)
[2017-08-24] MEDS: TOPROL XL PO SCH (11:32)
--- NOTE | 2017-08-24 12:13 | Discharge Summary ---
<HALINA MAC - Last Filed: 08/24/17 12:50> Providers - Providers Date of Admission: 08/16/17 12:04 Date of discharge: 08/24/17 Attending physician: MERCED PULIDO MD 08/16/17 11:52 Consult to Physician [CONS] Routine Consulting Provider: [facility] Reason For Exam: RT. LEG CELLULITIS, RT. LEG WOUND Place consult to:: Dr Brooke Notified:: yes Phone number called:: [phone] Time called:: 13:20 Comment:: I spoke to Dr Brooke to notify her 08/16/17 11:55 Consult to Physician [CONS] Routine Consulting Provider: JOSELINE GREY Reason For Exam: RT. LEG CELLULITIS & RT. LEG WOUND Place consult to:: Abdelrahman Notified:: yes Phone number called:: [phone] If yes, spoke with:: Marly Time called:: 14:05 08/16/17 16:14 Consult to Wound/ET Nurse [CONS] Routine Reason For Exam: wound eval 08/17/17 14:37 Consult to Physician [CONS] Routine Consulting Provider: ZAC SUH Reason For Exam: venous leg ulcer Place consult to:: Dr Suh Notified:: yes Phone number called:: in house Was contact made?: Yes If yes, spoke with:: Lew Nguyen Time called:: 15:07 08/18/17 11:52 Consult to Case Management [CONS] Stat Services Needed at Discharge: Other Notified:: application chemist Additional Physician Instructions: [facility] Ewelina Brooke MD [phone] O [phone] OUTPATIENT PARENTERAL ANTIBIOTIC THERAPY ORDERS Diagnoses:right leg infected venous ulcer due to OUTPATIENT FACILITY PHYSICAL THERAPIST-GNRs Antimicrobial administration: meropenem 1 g IV q 8h total 2 weeks from 08/16 until 08/29/17 Lines: PICC Lab monitoring: CBC, CMP, CRP once a week preferly on Wednesday morning. Please fax results to [phone] and call [phone] for critical lab results. Ewelina Brooke Date: 08/18/17 08/19/17 08:51 Consult to Dietitian/Nutrition [CONS] Routine Physician Instructions: Reason For Exam: Reason for Consult: Malnutrition 08/20/17 08:56 Physical Therapy Evaluation and Treat [CONS] Routine Comment: Reason For Exam: weakness 08/20/17 11:53 Consult to Mental Health [CONS] Urgent Reason For Exam: Please provide outpatient resources Place consult to:: Notified:: [id number] Phone number called:: [phone] Was contact made?: Yes If yes, spoke with:: Cherry Time called:: 11:55 Primary care physician: LIBERTAD RODRIGUEZ Hospitalization Condition: Good Pertinent studies: Bilateral lower extremity Doppler showed no evidence of DVT/SVT noted in vessels /segments visualized. Final chest x-ray confirmed the left arm PICC terminates in the superior vena cava Procedures: PICC line placement Hospital course: 77 YO Female with HTN, DM, COPD, JAMES on CPAP, MO, Metabolic syndrome admitted directly from wound clinic for treatment of RLE cellulitis. Pt seen and evaluated upon arrival. Pt denies fever, chills, CP, Palpitations, NVD, syndope , prolonged travel/immobility, individual/family history of DVT/PE, unintentional weight loss or night sweats. Pt denies any complaints at time of exam. Patient was treated with antibiotics albuterol, Brovana, Pulmicort, and resume all home medication which included insulin, antihypertensive, analgesics, Lasix. Patient was discharged to SNF with IV antibiotics. Patient is clinically stable Disposition: DC/TX-03 SNF W [facility] Time spent for discharge: 33 mins - Discharge Diagnoses (1) COPD (chronic obstructive pulmonary disease) Status: Chronic (2) Cellulitis of right lower extremity Status: Chronic (3) DVT prophylaxis Status: Acute (4) Diabetes Status: Chronic (5) HTN (hypertension) Status: Acute (6) Hypothyroidism associated with surgical procedure Status: Acute (7) JAMES (obstructive sleep apnea) Status: Acute (8) Venous insufficiency of both lower extremities Status: Acute Core Measure Documentation - Palliative Care Palliative Care/ Comfort Measures: Not Applicable - Core Measures Any of the following diagnoses?: none Exam - Constitutional Vitals: Temp Pulse Resp BP Pulse Ox 97.6 F 69 18 139/49 96 08/24/17 07:22 08/24/17 09:01 08/24/17 09:01 08/24/17 07:22 08/24/17 07:22 General appearance: Present: no acute distress, well-nourished - EENT Eyes: Present: PERRL ENT: hearing intact, clear oral mucosa - Neck Neck: Present: supple, normal ROM - Respiratory Respiratory effort: normal Respiratory: bilateral: CTA - Cardiovascular Heart Sounds: Present: S1 & S2. Absent: rub, click - Extremities Extremities: pulses symmetrical Extremity abnormal: edema (R>L LE) Peripheral Pulses: within normal limits - Abdominal General gastrointestinal: Present: soft, non-tender, non-distended, normal bowel sounds Female genitourinary: Present: deferred - Rectal Rectal Exam: deferred - Integumentary Integumentary: Present: warm (right lower extremity cellulitis), dry - Musculoskeletal Musculoskeletal: gait normal, strength equal bilaterally - Psychiatric Psychiatric: appropriate mood/affect, intact judgment & insight - Neurologic Neurologic: CNII-XII intact, moves all extremities - Allied Health Allied health notes reviewed: nursing Plan Activity: fall precautions Weight Bearing Status: Weight Bear as Tolerated Diet: low fat, low cholesterol, low salt, diabetic Wound: per wound nurse instructions Follow up with: LIBERTAD RODRIGUEZ MD [Primary Care Provider] - 7 Days DAY,JEY Nascimento MD [Staff Physician] - 7 Days Prescriptions: Meropenem [Merrem] 1,000 mg IV Q8HR 6 Days vial Meropenem [Merrem] 1 gm IV Q8H 14 Days vial <MERCED PULIDO - Last Filed: 08/26/17 18:30> Providers - Providers Date of Admission: 08/16/17 12:04 Attending physician: MERCED PULIDO MD 08/16/17 11:52 Consult to Physician [CONS] Routine Consulting Provider: [facility] Reason For Exam: RT. LEG CELLULITIS, RT. LEG WOUND Place consult to:: Dr Brooke Notified:: yes Phone number called:: [phone] Time called:: 13:20 Comment:: I spoke to Dr Brooke to notify her 08/16/17 11:55 Consult to Physician [CONS] Routine Consulting Provider: JOSELINE GREY Reason For Exam: RT. LEG CELLULITIS & RT. LEG WOUND Place consult to:: Abdelrahman Notified:: yes Phone number called:: [phone] If yes, spoke with:: Marly Time called:: 14:05 08/16/17 16:14 Consult to Wound/ET Nurse [CONS] Routine Reason For Exam: wound eval 08/17/17 14:37 Consult to Physician [CONS] Routine Consulting Provider: ZAC SUH Reason For Exam: venous leg ulcer Place consult to:: Dr Suh Notified:: yes Phone number called:: in house Was contact made?: Yes If yes, spoke with:: Lew Nguyen Time called:: 15:07 08/18/17 11:52 Consult to Case Management [CONS] Stat Services Needed at Discharge: Other Notified:: application chemist Additional Physician Instructions: [facility] ([facility]) MD Britt Ceja [phone] O [phone] OUTPATIENT PARENTERAL ANTIBIOTIC THERAPY ORDERS Diagnoses:right leg infected venous ulcer due to OUTPATIENT FACILITY PHYSICAL THERAPIST-GNRs Antimicrobial administration: meropenem 1 g IV q 8h total 2 weeks from 08/16 until 08/29/17 Lines: PICC Lab monitoring: CBC, CMP, CRP once a week preferly on Wednesday morning. Please fax results to [phone] and call [phone] for critical lab results. Ewelina Brooke Date: 08/18/17 08/19/17 08:51 Consult to Dietitian/Nutrition [CONS] Routine Physician Instructions: Reason For Exam: Reason for Consult: Malnutrition 08/20/17 08:56 Physical Therapy Evaluation and Treat [CONS] Routine Comment: Reason For Exam: weakness 08/20/17 11:53 Consult to Mental Health [CONS] Urgent Reason For Exam: Please provide outpatient resources Place consult to:: Notified:: 1155 Phone number called:: [phone] Was contact made?: Yes If yes, spoke with:: Cherry Time called:: 11:55 Primary care physician: LIBERTAD RODRIGUEZ Hospitalization Hospital course: Wound culture was done and ID consulted and based on the culture and sensitivity of the culture, ID recommended meropenem to be taken a total of 14 days. Condition discharged to SNF finish the IV antibiotics. Patient was discharged 3 days before she appealed discharge and lost the appeal. - Discharge Diagnoses (1) Hypothyroidism associated with surgical procedure Status: Acute (2) JAMES (obstructive sleep apnea) Status: Acute (3) Venous insufficiency of both lower extremities Status: Acute (4) COPD (chronic obstructive pulmonary disease) Status: Chronic (5) Cellulitis of right lower extremity Status: Chronic (6) Diabetes Status: Chronic Core Measure Documentation - Palliative Care Palliative Care/ Comfort Measures: Not Applicable - Core Measures Any of the following diagnoses?: none Exam - Physical Exam Narrative exam: Not in cardiopulmonary distress. The patient is obese. Vital signs as documented. Head exam is unremarkable. No scleral icterus . Neck is without jugular venous distension, thyromegaly, or carotid bruits. Lungs are clear to auscultation. Cardiac exam reveals regular rate and Rhythm. First and second heart sounds normal. No murmurs, rubs or gallops. Abdominal exam reveals normal bowel sounds, no masses, no organomegaly and no aortic enlargement. Extremities are nonedematous and both femoral and pedal pulses are normal. 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 No focal weakness. - Constitutional Vitals: Temp Pulse Resp BP Pulse Ox 97.6 F 69 18 139/49 96 08/24/17 07:22 08/24/17 09:01 08/24/17 09:01 08/24/17 07:22 08/24/17 07:22 Plan Activity: advance as tolerated Weight Bearing Status: Weight Bear as Tolerated Diet: low fat, low cholesterol, low salt, diabetic
== END 2017-08-24 13:15 | DRG 603 ==
LOC: 3A 10:36 → UNDOADMIN 10:36 → 3A 12:04 → UNDODISIN 08-17 15:26
PROVIDERS: ADMIT Internal Medicine; ATTEND Internal Medicine
PROC: 5A09357 Assistance with Respiratory Ventilation, Less than 24 Consecutive Hours, Continuous Positive Airway Pressure (ICD-10-PCS; 2017-08-16)
PROC: 5A09457 Assistance with Respiratory Ventilation, 24-96 Consecutive Hours, Continuous Positive Airway Pressure (ICD-10-PCS; 2017-08-18)
PROC: 02HV33Z Insertion of Infusion Device into Superior Vena Cava, Percutaneous Approach (ICD-10-PCS; principal; 2017-08-19)
PROC: 5A09457 Assistance with Respiratory Ventilation, 24-96 Consecutive Hours, Continuous Positive Airway Pressure (ICD-10-PCS; 2017-08-21)
DX: L03.115 Cellulitis of right lower limb (principal); Z68.42 Body mass index [BMI] 45.0-49.9, adult; E44.0 Moderate protein-calorie malnutrition; R65.10 Systemic inflammatory response syndrome (SIRS) of non-infectious origin without acute organ dysfunction; L97.919 Non-pressure chronic ulcer of unspecified part of right lower leg with unspecified severity; E11.8 Type 2 diabetes mellitus with unspecified complications; G47.33 Obstructive sleep apnea (adult) (pediatric); I10 Essential (primary) hypertension; I87.2 Venous insufficiency (chronic) (peripheral); E11.65 Type 2 diabetes mellitus with hyperglycemia; E66.01 Morbid (severe) obesity due to excess calories; E03.9 Hypothyroidism, unspecified; J44.9 Chronic obstructive pulmonary disease, unspecified; E88.81 Metabolic syndrome and other insulin resistance; I87.8 Other specified disorders of veins; E11.622 Type 2 diabetes mellitus with other skin ulcer; D72.829 Elevated white blood cell count, unspecified; Z71.3 Dietary counseling and surveillance; Z88.1 Allergy status to other antibiotic agents; Z79.899 Other long term (current) drug therapy; Z90.49 Acquired absence of other specified parts of digestive tract
CPT/HCPCS: 36415; 71010; 80048; 80053; 82962; 85007; 85025; 85027; 86140; 93925; 93970; 94640; 94660; A9270-GY; G8978-GP; G8979-GP; J0360; J1815; J1818; J2185